=== PATIENT | female | born 1950 | race Caucasian/White ===

== ENCOUNTER 2017-03-12 11:53 | Emergency (ER) | payer OTHER ==
[~2017-03-12 11:53] MED LIST: C1 PO; C5 PO; CALTRA600D PO; CALTRAT600 PO; CARD120 PO; CARDCD120 PO; CLARIT10 PO; COUMADIN10 MG PO; COUMADIN7.5 MG PO; DEMA10T PO; DITRO5 PO; DITROXL5 PO; ESTRACE1 MG PO; ESTRADIOL1 MG PO; K-TABS10 MEQ PO; KLOR-CON 1010 MEQ PO; LEVOTHYROXIN75 MCG PO; LOP25 PO; LOP50 PO; MAGOX4 PO; MAX25 PO; MULTIPLE VIT PO; NEUR300 PO; PRILO PO; PRIN10 PO; ROCALTROL 0.0.25 MCG PO; RYTHMOL225 MG PO; SYN.05 PO; THERGRANM PO; TIROSINT50 MCG PO; VITD PO; ZOL50 PO
[2017-03-12 12:31] LABS: BASOPHILS 0.5 %; BASOPHILS ABSOLUTE 0.03 10/3/uL (0.0-0.16); EOSINOPHILS 2.6 %; EOSINOPHILS ABSOLUTE 0.15 10/3/uL (0.0-0.53); ER CBC TAT 0 Hrs 05 Mins; HEMATOCRIT 37.7 % (36.0-48.0); HEMOGLOBIN 12.2 g/dL (12.0-16.0); IMMATURE GRANULOCYTES 0.5 %; IMMATURE GRANULOCYTES ABSOLUTE 0.03 10/3/uL (0.0-0.11); LYMPHOCYTES 30.1 %; LYMPHOCYTES ABSOLUTE 1.74 10/3/uL (0.67-4.30); MEAN CORPUS HGB CONC 32.4 g/dL (32.0-36.0); MEAN CORPUSCULAR HEMOGLOB 30.4 pg (26.0-34.0); MEAN PLATELET VOLUME 10.9 fL (9.2-13.0); MONOCYTES 11.6 %; MONOCYTES ABSOLUTE 0.67 10/3/uL (0.21-1.20); NEUTROPHILS 54.7 %; NEUTROPHILS ABSOLUTE 3.16 10/3/uL (2.02-8.40); PLATELET COUNT 167 10/3/uL (150-400); RBC DISTRIBUTION WIDTH 13.4 % (12.0-16.0); RED CELL COUNT 4.01 10/6/uL (4.0-5.6); WHITE BLOOD CELLS 5.8 10/3/uL (4.5-10.5)
[2017-03-12 12:32] LABS: MANUAL DIFF NO %
[2017-03-12 12:42] LABS: INTERNATIONAL NORMAL RATI 1.9 UNITS (-); PARTIAL THROMBO TIME 33.9 SEC (22.5-37.2); PROTIME (NOT ORD) 21.3 SEC (12.0-14.5)
[2017-03-12 12:46] LABS: BUN (BLOOD UREA NITROGEN) 20 MG/DL (6-23); CALCIUM, SERUM 8.8 MG/DL (8.5-10.4); CHEST PAIN PROFILE TAT 0 Hrs 20 Mins; CHLORIDE, SERUM 107 MMOL/L (96-112); CO2 (CARBON DIOXIDE) 30 MMOL/L (24-34); CREATININE 1.11 MG/DL (0.55-1.02); GFR AFRICAN AMERICAN 59 ML/MIN (>=60); GFR NON AFRICAN AMERICAN 51 ML/MIN (>=60); GLUCOSE, SERUM 91 MG/DL (60-99); POTASSIUM, SERUM 4.4 MMOL/L (3.5-5.3); SODIUM, SERUM 144 MMOL/L (135-148); TROPONIN I 0.02 NG/ML (<0.05)
== END 2017-03-12 16:42 | disposition home or self-care (01) ==
LOC: ER 11:53
PROVIDERS: Emergency Medicine
DX: I50.9 Heart failure, unspecified (principal); E66.01 Morbid (severe) obesity due to excess calories; G47.30 Sleep apnea, unspecified; I27.2 Other secondary pulmonary hypertension; I48.91 Unspecified atrial fibrillation; K21.9 Gastro-esophageal reflux disease without esophagitis; Z79.899 Other long term (current) drug therapy; Z79.01 Long term (current) use of anticoagulants
CPT/HCPCS: 71020; 80048; 83735; 83880; 84484; 85025; 85610; 85730; 93005; 99285; A9270-GY

== ENCOUNTER 2017-05-12 14:25 | Inpatient (IN) | payer OTHER ==
[~2017-05-12] VITALS: Ht 160 cm; Wt 116.3 kg
--- NOTE | ~2017-05-12 | OP ---
Record Of Operation [facility] [address] [place]. [address] NAME: DAVID VILLAGRAN : 46 STATUS : ADM IN [facility]#: [id number] AGE: 67 ADM/REG DATE : 05/12/17 MR#: [id number] REPORT SERV DATE: 05/19/17 DICTATED BY: KERLINE TSANG DATE: 05/18/17 REPORT STATUS : Draft TRANSCRIBED BY: MODL DATE: 05/18/17 DATE OF PROCEDURE: 05/13/2017 PREPROCEDURAL DIAGNOSIS: End-stage renal disease requiring urgent dialysis. POSTOPERATIVE DIAGNOSIS: End-stage renal disease requiring urgent dialysis. PROCEDURE PERFORMED: Right internal jugular temporary Vas-Cath placement. ANESTHESIA: Local with 1% lidocaine. ESTIMATED BLOOD LOSS: Minimal. PROCEDURE IN DETAIL: After consent was obtained from the patient's daughter at bedside, the right neck was prepped and draped in the usual sterile fashion. Using Seldinger technique, the skin overlying the right internal jugular vein was anesthetized with 1% lidocaine. Using ultrasound guidance, the right internal jugular was accessed with an 18-gauge needle and dark venous blood was aspirated. A guidewire was passed into the internal jugular vein and a small incision was made in the skin. The needle was exchanged for 2 serial dilators followed by the Vas-Cath which was already flushed and prepped. The 15 cm Vas-Cath was placed in the internal jugular vein with the tip guided toward the atriocaval junction. The wire was removed and both ports were checked for venous return and flushed with saline. Two sterile caps were then attached. The Vas-Cath was then sutured to the skin with silk suture and covered with a sterile dressing. The patient tolerated the procedure well. EC/MODL Kerline Tsang DO / [id number] CC: DO Bandar Gibson M.D.
--- NOTE | ~2017-05-12 | CN ---
Consultation Report [facility] [address] [place]. [address] NAME: DAVID VILLAGRAN : 46 STATUS : ADM IN [facility]#: [id number] AGE: 67 ADM/REG DATE : 05/12/17 MR#: [id number] REPORT SERV DATE: 05/22/17 DICTATED BY: ELIAN QUINTANILLA DATE: 05/22/17 REPORT STATUS : Draft TRANSCRIBED BY: MODL DATE: 05/22/17 GI CONSULTATION DATE OF CONSULTATION: 05/22/2017 REASON FOR CONSULTATION: Evaluation and management of small bowel obstruction/ileus. HISTORY OF PRESENT ILLNESS: Ms Villagran is a 67-year-old female patient, who presented to [facility] Room on 05/12/2017 with a chief complaint of progressive weakness. It should be noted that the patient's history of present illness has been gathered from review of data from the chart as well as discussion with her daughter, Heidi, who is present at the bedside. On admission, she had a noted blood pressure of 77/60. Urinalysis was consistent with UTI. She had an elevated white blood cell count. She was admitted for further evaluation secondary to sepsis type picture. The night of admission, she was intubated, was placed on the ventilator as well as Levophed for blood pressure support. She had an elevated creatinine up to 4.23. Ultimately, she was diagnosed with E. coli bacteremia/UTI. She was extubated, but only to be reintubated on 05/18/2017. Abdominal imaging on 05/20/2017 showed small bowel obstruction pattern. KUB today shows more of a persistent ileus type picture. She has an NG tube to low intermittent suction that is putting out 200 per shift roughly per the RN. She has not had a bowel movement since admission. The daughter states that typically she has diarrhea. She is unsure if she has never had an EGD or colonoscopy. I have discussed with them that at present with KUB today showing ileus type picture. We will start her on some suppositories as well as low- dose Reglan and monitor for improvement. They are concerned regarding her nutritional status. I did discuss with them if no improvement in the next two days, we would recommend TPN for enteral nutrition; however, we will see how she responds to these therapies. PAST MEDICAL HISTORY: She has past medical history that is notable for hypertension, obesity, atrial fibrillation with history of cardiac ablation x2, cardioversion x3. She was taking chronic Coumadin on admission. Hypothyroidism, obstructive sleep apnea with CPAP usage, history of GERD, and depression. PAST SURGICAL HISTORY: Includes left total hip arthroplasty, bilateral rotator cuff repair, and hysterectomy. FAMILY HISTORY: Unable to be obtained, but negative from a GI standpoint per the daughter's report. SOCIAL HISTORY: She is . She lives independently. No note of tobacco or drug abuse. ALLERGIES: NO KNOWN ALLERGIES. HOME MEDICATIONS: On admission consisted of Refresh, Cardizem, Lomotil, Synthroid, Prilosec, Ditropan, Rythmol, Demodex, calcium [id number], and Coumadin. Consultation Report [address] [place]. [address] NAME: DAVID VILLAGRAN : 46 STATUS : ADM IN [facility]#: [id number] AGE: 67 ADM/REG DATE : 05/12/17 MR#: [id number] REPORT SERV DATE: 05/22/17 DICTATED BY: ELIAN QUINTANILLA DATE: 05/22/17 REPORT STATUS : Draft TRANSCRIBED BY: ROSA DATE: 05/22/17 REVIEW OF SYSTEMS: Review of systems is unable to be obtained secondary to the patient's sedated status. PHYSICAL EXAMINATION: VITAL SIGNS: Temperature is 99.0, pulse is 175, respirations of 25, and blood pressure is 146/65. NEUROLOGIC: Reveals a sedated chronically ill-appearing female, resting in CCU bed 6. GENERAL: Sedated and intubated. She has an obese body habitus. She is in no acute distress at present. HEAD, EARS, EYES, NOSE, AND THROAT: Anicteric. Pupils are equal, round, and reactive to light and accommodation. Normocephalic and atraumatic. NECK: Supple. No JVD or palpable nodes. LUNGS: Coarse with late crackles in the right upper lobe in the expiratory phase. Ventilator support noted. CARDIOVASCULAR SYSTEM: Irregularly irregular rate and rhythm. ABDOMEN: Round and distended. Extremely hypoactive, but she does have some faint bowel sounds. No rigidity, no rebound or guarding was elicited on exam. EXTREMITIES: She has a brawny lower extremities with 1 to 2+ edema. PERTINENT LABORATORY DATA: Sodium 139, potassium 3.4, BUN 43, and creatinine 2.80. White count 10.3, hemoglobin 8.2, hematocrit 24.3, and platelets are 115. INR of 1.4. IMAGING: KUB on 05/22/2017 with persistent ileus. ASSESSMENT: 1. Small bowel obstruction. Now, with more of an ileus type pattern. 2. Acute hypoxic respiratory failure with her being reintubated on 05/18/2017. 3. Escherichia coli bacteremia/urinary tract infection. 4. Sepsis with septic shock. 5. Acute renal failure, now on CRRT. 6. Atrial fibrillation with previously on Coumadin prior to admission. PLAN: 1. We will obtain serial imaging to assess daily improvement of ileus. 2. Low-dose Reglan at 5 mg IV q.6 hours. 3. Dulcolax suppository b.i.d. 4. Continue NG tube suction. 5. Question TPN if ileus is not improve in one to two days. We will follow. MAGGIE/ROSA Consultation Report [address] [place]. [address] NAME: DAVID VILLAGRAN : 46 STATUS : ADM IN [facility]#: [id number] AGE: 67 ADM/REG DATE : 05/12/17 MR#: [id number] REPORT SERV DATE: 05/22/17 DICTATED BY: ELIAN QUINTANILLA DATE: 05/22/17 REPORT STATUS : Draft TRANSCRIBED BY: ROSA DATE: 05/22/17 SANTHOSH Estrella / [id number] CC: Nancy Lazar M.D.
--- NOTE | ~2017-05-12 | OP ---
Record Of Operation [facility] [address] [place]. [address] NAME: DAVID VILLAGRAN : 46 STATUS : ADM IN [facility]#: [id number] AGE: 67 ADM/REG DATE : 05/12/17 MR#: [id number] REPORT SERV DATE: 05/13/17 DICTATED BY: CHECO BENNETT DATE: 05/13/17 REPORT STATUS : Draft TRANSCRIBED BY: MODL DATE: 05/13/17 DATE OF PROCEDURE: 05/13/2017 PROCEDURE: Endotracheal intubation. PREOPERATIVE DIAGNOSES: Acute hypercapnic respiratory failure and septic shock. POSTOPERATIVE DIAGNOSES: Acute hypercapnic respiratory failure and septic shock. PROCEDURE IN DETAIL: The patient was on BiPAP therapy, she was pre-oxygenated with 100% FiO2 through the BiPAP. She was laid flat for the procedure, the patient was given 100 mg of propofol, BiPAP was taken off and using a Mac blade we were unable to obtain any visualizations of the vocal cords, the patient had quite a small neck and difficulty to have any good visualization using direct laryngoscopy. We then switched to GlideScope and had a grade 1 view. We were able to place the ET tube underneath direct visualization past the vocal cords and secured the ET tube. Post intubation chest x-ray shows that this line is in good position. OUTCOME: Successful endotracheal intubation via GlideScope. No complications or hypoxia or hypotension noted. HFQ/ROSA Checo Bennett MD / [id number] CC: Nancy Lazar M.D.
--- NOTE | ~2017-05-12 | IDS ---
Interim Discharge Summary [facility] [address] [place]. [address] NAME: DAVID VILLAGRAN : 46 STATUS : ADM IN PAT#: [id number] AGE: 67 ADM/REG DATE : 05/12/17 MR#: [id number] REPORT SERV DATE: 05/22/17 DICTATED BY: ONEAL EDGE DATE: 05/22/17 REPORT STATUS : Draft TRANSCRIBED BY: MODL DATE: 05/22/17 ADMISSION DATE: 05/12/2017 DISCHARGE DATE: This summary will cover 05/18/2017 through 05/22/2017, during which time I cared for Ms. Villagran in the CCU. Please see Dr. Juanito Chavez's interim summary dated 05/17/2017 as well as previous H and P from the time of initial hospitalization by Dr. Fernandez, 05/13/2017. ACTIVE PROBLEM LIST THIS WEEK: 1. Acute hypoxemic and hypercapnic respiratory failure. Ms. Villagran was initially intubated at the time of her hospitalization and was able to be extubated on 05/15/[address] Chavez. Unfortunately, after a couple of days, she was reintubated on 05/18/2017 for weak cough, inability to protect airway, and poor mental status with hypoxemia and hypercapnia. She remains volume overloaded and is on meropenem for coverage of possible pneumonia superimposed. 2. Acute renal failure requiring dialysis. She has undergone multiple dialysis treatments this week and has actually been transitioned to a trial of intermittent Bumex by Dr. Ferrara. Her current dose is 2.5 mg IV q.8. The plan is to observe her over the next day or two and make further determinations about dialysis going forward based on her response to the Bumex. Of note, her family has been advised that Dr. Ferrara foresees at least six weeks on dialysis intermittently. 3. Septic shock secondary to Escherichia coli urinary tract infection/bacteremia. She remains on meropenem. She was actually broadened out earlier this week due to concern for co-infection or new infection acquired during hospitalization when she deteriorated on Thursday. 4. Multifactorial encephalopathy. We are weaning sedation as much as possible and trying to keep her more awake. 5. Thrombocytopenia with a negative DIC panel in the setting of septic shock. Her platelet count is improving and she has no active bleeding. 6. Fevers early in the week. She was re-cultured. Her NG tube was changed to an OG tube. Her legs were ultrasounded and her proton pump inhibitor was discontinued and an H2 gia was initiated. She has had no further fevers with broadening the antibiotics to meropenem. 7. Hypothyroidism. She remains on chronic Synthroid. 8. Atrial fibrillation with variable rate control. She has been seen by Dr. Carlos several times this week and remains on IV amiodarone. There was concern that her Rythmol was not being absorbed. 9. Small bowel obstruction. GI has been consulted. She is on NG tube low intermittent suction for bowel rest and we will continue to perform serial abdominal exams. She is not an ideal surgical candidate. 10.Prophylaxis subcutaneous heparin and Pepcid. 11.She has morning labs ordered for tomorrow. 12.Her family has been updated many times this week. She has a , however, that relationship is complicated and the ethics committee as well as the hospital Interim Discharge Summary [address] [place]. [address] NAME: DAVID VILLAGRAN : 46 STATUS : ADM IN PAT#: [id number] AGE: 67 ADM/REG DATE : 05/12/17 MR#: [id number] REPORT SERV DATE: 05/22/17 DICTATED BY: ONEAL EDGE DATE: 05/22/17 REPORT STATUS : Draft TRANSCRIBED BY: ROSA DATE: 05/22/17 administration have been involved over the last two weeks in mediating family interactions. Her son Raffaele Villagran has been serving as her medical decision maker and has been appointed surrogate decision maker by Dr. Chavez last week. She has several other children who have been updated by members of the care team throughout the week. We did have a conversation with her son Raffaele this morning clarifying that he was the primary family contact and that we would appreciate his help and keeping all family members updated on her current clinical condition as performing individual updates have become fairly time consuming for the nursing staff. He was in agreement and we will move forward with daily updates either in person or by telephone to her son, who is her appointed medical decision maker and he will plan to disseminate all additional information each day to the various other members of the family. 13.Code status. After a long family visit with the patient's son, daughter, son-in-law and her brother, decision was made to make her DNR in light of her overall poor prognosis for recovery to good quality of life. She is a no escalation type DNR and we will continue to keep the family updated daily on her clinical status. She will be picked up by the oncoming fighter pilot. ASHLEY/ROSA Oneal Edge MD / [id number] CC: Nancy Lazar M.D.
--- NOTE | ~2017-05-12 | CN ---
Consultation Report [place] [id number] [facility] [place]. [address] NAME: DAVID VILLAGRAN : 46 STATUS : ADM IN PAT#: [id number] AGE: 67 ADM/REG DATE : 05/12/17 MR#: [id number] REPORT SERV DATE: 05/13/17 DICTATED BY: JAMES FLANAGAN DATE: 05/13/17 REPORT STATUS : Draft TRANSCRIBED BY: MODBrock DATE: 05/13/17 NEPHROLOGY CONSULTATION DATE OF CONSULTATION: 05/13/2017 REQUESTING PHYSICIAN: Dr. Justin Fernandez. INDICATION FOR CONSULTATION: Acute kidney injury. HISTORY OF PRESENT ILLNESS: Ms. Villagran is a 67-year-old female who presented to the emergency room with progressive weakness. She was noted to have a blood pressure of 77/60 with a urine consistent with a urinary tract infection and an elevated white count of 16,000. She was admitted, and treatment was initiated for sepsis. During the night, she required intubation and currently is on ventilator, vasopressin and Levophed for support. Creatinine was 1.1 in February 2017 and has risen from 3.26 to 4.23 with a potassium of 5.6. Her white cell count has risen to 23,000, E. coli is growing from her blood, and her procalcitonin level is greater than 200. Her platelet count is 54,000 with an INR of 2.3. PAST MEDICAL HISTORY: 1. Hypertension. 2. Atrial fibrillation, status post cardiac ablations x2 and cardioversion x3, on chronic Coumadin therapy. 3. Hypothyroidism. 4. Obstructive sleep apnea on CPAP. 5. Left total hip arthroplasty 2010. 6. Bilateral rotator cuff repairs. 7. Gastroesophageal reflux disease. 8. Remote hysterectomy. 9. Depression. HOME MEDICATIONS: 1. Cardizem. 2. Lomotil. 3. Synthroid. 4. Prilosec. 5. Ditropan. 6. Rythmol. 7. Demadex. 8. Xflc-ufb-ofvhgyl calcium. 9. Coumadin. ALLERGIES: NONE KNOWN. FAMILY HISTORY: Unable to obtain. The patient is intubated and sedated. Consultation Report [place] [address] [facility] [place]. [address] NAME: DAVID VILLAGRAN : 46 STATUS : ADM IN PAT#: [id number] AGE: 67 ADM/REG DATE : 05/12/17 MR#: [id number] REPORT SERV DATE: 05/13/17 DICTATED BY: JAMES FLANAGAN DATE: 05/13/17 REPORT STATUS : Draft TRANSCRIBED BY: ROSA DATE: 05/13/17 REVIEW OF SYSTEMS: Unable to obtain. The patient is sedated and intubated. PHYSICAL EXAMINATION: GENERAL: Obese female, sedated on vent. VITAL SIGNS: Blood pressure 84/46, temperature 100.5 degrees, respiratory rate 16 per vent, and pulse 60. HEENT: Eyes, no scleral icterus. Pupils reactive. Nares with patent mouth with OG, ET tube in place. NECK: No thyromegaly, masses, or bruits. CHEST/LUNGS: Lateral crackles. No wheezes. CARDIAC: Regular rate and rhythm. No murmur, gallop, or rub. ABDOMEN: Supple. Normoactive bowel sounds. No tenderness. BREASTS: Exam not performed. PELVIC: Exam not performed. RECTAL: Exam not performed. EXTREMITIES: 1 to 2+ brawny edema. No calf tenderness. Some changes suggestive of venous stasis disease in the lower extremities. DERMIS: No rash. No skin lesions except lower extremities consistent with venous stasis disease. MUSCULOSKELETAL: No deformity. No joint effusions. NEUROLOGIC: Unable to evaluate. IMPRESSION: 1. Acute kidney injury secondary to sepsis/shock with hypoperfusion and acute tubular necrosis. 2. Acute respiratory failure, on vent. 3. Severe sepsis with Escherichia coli on blood cultures, likely source. 4. History of atrial fibrillation, status post cardiac ablations and cardioversion. 5. Anemia. 6. Thrombocytopenia. 7. Coagulopathy likely from Coumadin. 8. History of hypotension. 9. Hypothyroidism. 10.Obstructive sleep apnea. 11.Gastroesophageal reflux disease. PLAN: 1. REDRAWER discussed with family. We will proceed as consent has been obtained. 2. Labs. 3. Concur with antibiotic coverage. CG/MODL Consultation Report [place] [address] [place]. [address] NAME: DAVID VILLAGRAN : 46 STATUS : ADM IN PAT#: [id number] AGE: 67 ADM/REG DATE : 05/12/17 MR#: [id number] REPORT SERV DATE: 05/13/17 DICTATED BY: JAMES FLANAGAN DATE: 05/13/17 REPORT STATUS : Draft TRANSCRIBED BY: ROSA DATE: 05/13/17 aJmes Flanagan M.D. / [id number] CC: Nancy Lazar M.D.
--- NOTE | ~2017-05-12 | IDS ---
Interim Discharge Summary [facility] [address] [place]. [address] NAME: DAVID VILLAGRAN : 46 STATUS : ADM IN [facility]#: [id number] AGE: 67 ADM/REG DATE : 05/12/17 MR#: [id number] REPORT SERV DATE: 06/09/17 DICTATED BY: JEANA APARICIO DATE: 06/08/17 REPORT STATUS : Draft TRANSCRIBED BY: ROSA DATE: 06/08/17 ADMISSION DATE: 05/12/2017 DISCHARGE DATE: Please see previous interim discharge summaries by Dr. Chavez on 05/17/2017, Dr. Lomeli on 05/22/2017, and Dr. Ragsdale on 05/29/2017. CURRENT DIAGNOSES: 1. Hypoxemic and hypercapnic respiratory failure, extubated on 05/26/2017. 2. Sepsis secondary to Escherichia coli bacteremia. 3. Acute kidney injury with creatinine now stable at approximately 2. 4. Atrial fibrillation. 5. Ileus, now resolved. 6. Encephalopathy, now resolved. 7. Candidemia, now resolved. 8. Obstructive sleep apnea, on CPAP nightly. 9. Morbid obesity. 10.Diarrhea. BRIEF HOSPITAL COURSE: Ms. Villagran has had a long admission, but in brief summary she presented with septic shock secondary to E. coli urinary tract infection, bacteremia and was treated with meropenem requiring intubation as well for acute hypoxic hypercapnic respiratory failure. She failed her initial extubation and had to be reintubated on 05/18/2017 after which she self-extubated on 05/26/2017. She also had acute kidney injury requiring dialysis with significant volume overload during her stay with improvement of her creatinine, now no longer requiring hemodialysis. Her stay was also complicated with AFib with RVR, which time she was seen by molecular geneticist, Dr. Carlos, and placed on amiodarone, which she continues to be on by mouth at this time. She also is on Coreg for AFib control. She additionally developed an ileus during her hospitalization and was given subcutaneous neostigmine with excellent response. However, she developed diarrhea later in her stay. Her course was also complicated by candidemia, which was felt to be a line colonization, treated with Mycamine at that time. Below are her current medical problems: 1. Acute hypoxic hypercapnic respiratory failure. At this time, she remains on minimal oxygen requirements of 2 to 3 L. 2. Diarrhea. Following resolution of her ileus, she did develop diarrhea. She was tested for C diff and stool cultures, which were negative. Her diarrhea has improved with banana flakes and Lomotil as needed. 3. ARLET. The patient has a creatinine of approximately 3 at this time, which is unstable. She will need a followup with Nephrology after her discharge. 4. Atrial fibrillation. Since assuming her care, she has had no problems with rate control while on carvedilol and amiodarone. She also takes warfarin. 5. Obstructive sleep apnea. She has used her CPAP during the course of her hospitalization without complication. 6. Candidemia. She did have candidemia, which may have been line related, which has been Interim Discharge Summary [address] [address] NAME: DAVID VILLAGRAN : 46 STATUS : ADM IN [facility]#: [id number] AGE: 67 ADM/REG DATE : 05/12/17 MR#: [id number] REPORT SERV DATE: 06/09/17 DICTATED BY: JEANA APARICIO DATE: 06/08/17 REPORT STATUS : Draft TRANSCRIBED BY: ROSA DATE: 06/08/17 treated. She may require an Ophthalmology assessment as an outpatient to assess for endophthalmitis after candidemia. DISPOSITION: The patient is at this time medically stable and ready for discharge; however, we are awaiting full medical and financial approval for her transfer. JAZMINE/ROSA TEX APARICIO / [id number] CC: TEX Allen M.D.
--- NOTE | ~2017-05-12 | HP ---
History And Physical [id number] [place]. [address] NAME: DAVID VILLAGRAN : 46 STATUS : ADM IN [facility]#: [id number] AGE: 67 ADM/REG DATE : 05/12/17 MR#: [id number] REPORT SERV DATE: 05/13/17 DICTATED BY: OLIVIA FERNANDEZ DATE: 05/12/17 REPORT STATUS : Draft TRANSCRIBED BY: MODL DATE: 05/12/17 DATE OF ADMISSION: 05/12/2017 TIME: 1827 hours, seen in the ER bed 2. HISTORY OF PRESENT ILLNESS: The patient is a 67-year-old white female, known history of underlying cardiac disease status post ablation x3. She enters the hospital today after feeling weak for the past several days, having shaking chill and poor urine output. Progressively short of breath. Seen by Dr. Virk in ER. She had an elevated BMP noted with a creatinine that is elevated to above 3. When I arrived, the patient is awake, alert, but slightly tachypneic. She is complaining of back pain. The patient on history denied any history of PR in the past, and indeed review of [employer] revealed a recent ejection fraction of approximately 50%. She is taking a number of different medications, seen by Dr. Carlos from EP, for ablations and is now status post ablations. The clinical suspicion in the ER is that of sepsis and septic shock as well as some early probable diastolic heart failure. PAST MEDICAL HISTORY: Significant for sleep apnea, CPAP and BiPAP status post cardiac cath in the past, thyroid disease, hypertension. She is status post catheter ablation, status post eyelid surgery, rhinoplasty, and history of partial hysterectomy. ALLERGIES: NO KNOWN ALLERGIES. HOME MEDICATIONS: Levothyroxine and Demadex. Other medications currently are unknown at this time except for Coumadin. Her INR is 2.2. REVIEW OF SYSTEMS: GI: Negative. : As noted. CARDIAC: As noted. ENDOCRINE: Hypothyroidism. MUSCULOSKELETAL: Arthritis especially severe back arthritis. HEME/ONC: Negative. FAMILY HISTORY: Noncontributory. PHYSICAL EXAMINATION: VITAL SIGNS: Blood pressure was 76/60, pulse is approximately 70, saturation 97% on oxygen. GENERAL: The patient is awake, alert, oriented, responsive, but somewhat tachypneic. HEENT: Head is normocephalic. Sclerae and conjunctiva clear. Tongue is normal. NECK: Supple. Slight JVD. CHEST: Decreased breath sounds with crackles and some wheezing bilaterally. CARDIAC: S1, S2. No murmurs or gallops at this time. ABDOMEN: Obese nontender. No masses or organomegaly. EXTREMITIES: 2+ edema. Pulses are palpable. NEUROLOGIC: Cranial nerves 2 through 12 are intact. Deep tendon reflexes appear to be History And Physical [address] [address] NAME: DAVID VILLAGRAN : 46 STATUS : ADM IN PAT#: [id number] AGE: 67 ADM/REG DATE : 05/12/17 MR#: [id number] REPORT SERV DATE: 05/13/17 DICTATED BY: OLIVIA FERNANDEZ DATE: 05/12/17 REPORT STATUS : Draft TRANSCRIBED BY: ROSA DATE: 05/12/17 within normal limits. LABORATORY RESULTS: Show procalcitonin of 147.39. Sodium 138, potassium 4.3, chloride 100, CO2 of 21, BUN 27, creatinine 3.46, glucose 103, calcium 8.9, magnesium 1.3, 0.22. Lactate 7.2. 59 and 7.6, H and H 13.3 and 40.6, white count 16,000, platelet count 85,000, 57 polys, 35 bands, 7 metamyelocytes. PTT is 48.8, INR is 2.2. Protime itself was 24.1 seconds. Lactate level 7.2. Arterial blood gas shows a pH of 7.40, PCO2 of 32, PO2 of 90, base excess -4.7 on 36% oxygen. Chest x-ray shows mild cardiomegaly without focal airspace consolidation. Troponin was 0.22. EKG shows sinus tachycardia. IMPRESSION: 1. Severe sepsis and shock. 2. Probable urinary tract infection. 3. Underlying history of cardiac ablation, I suspect diastolic dysfunction. 4. Acute pulmonary insufficiency, hypoxemic in nature. PLAN: Initiate BiPAP. May need fluids as well as pressors. We will place PICC line. We will continue the antibiotics, which she has received in the ER. Capillary refill look good. The patient could not undergo leg raising test because of her extreme dyspnea reclining. RP/MODL Olivia Fernandez M.D. / [id number] CC: Nancy Lazar M.D.
--- NOTE | ~2017-05-12 | DS ---
Discharge Summary [address] [place]. [address] NAME: DAVID VILLAGRAN : 46 STATUS : DIS IN PAT#: [id number] AGE: 67 ADM/REG DATE : 05/12/17 MR#: [id number] REPORT SERV DATE: 06/10/17 DICTATED BY: TEODORO MARTINEZ DATE: 06/09/17 REPORT STATUS : Draft TRANSCRIBED BY: MODL DATE: 06/09/17 ADMISSION DATE: 05/12/2017 DISCHARGE DATE: 06/09/2017 DISCHARGE DIAGNOSES: Include: 1. Acute hypoxic and hypercapnic respiratory failure. 2. Sepsis secondary to E. coli bacteremia. 3. Acute kidney injury on chronic kidney disease stage 3. Baseline creatinine of 2. 4. Atrial fibrillation. 5. Acute encephalopathy, multifactorial, resolved. 6. Ileus, resolved. 7. Morbid obesity. 8. Obstructive sleep apnea, on current CPAP therapy. 9. Candidemia, resolved. 10.Hypothyroidism, on Synthroid therapy. DISCHARGE MEDICATIONS: Are as follows, amiodarone 200 mg twice a day, Coreg 37.5 mg twice a day, Pepcid 20 mg at bedtime, Synthroid 50 mcg daily, Lidoderm topical patch daily, magnesium oxide 400 mg twice a day, melatonin 6 mg at bedtime, Reglan 5 mg t.i.d., Coumadin 3 mg at bedtime, Pulmicort Respules twice a day, DuoNebs every four hours while awake, Ditropan 5 mg twice a day, Prilosec 40 mg daily p.r.n. for GERD symptoms, bzwt-ylx-ynarhrs calcium, Lomotil 2.5 mg daily, Refresh ophthalmic drops twice a day p.r.n., and simethicone 80 mg every six hours p.r.n. for gas. HISTORY OF PRESENT ILLNESS: A 67-year-old white female, who originally presented with feeling weak, chills, poor urine output, and shortness of breath. Please see the initial H and P of Dr. Justin Fernandez on 05/13/2017, as the patient was admitted to the [facility] and moved to the ICU. Please see the interim discharge summaries of anvilsmith, Dr. Juanito Chavez; anvilsmith, Dr. Mya Lomeli; anvilsmith, Dr. Cody Ragsdale; and hospitalist, Dr. Eagle Hagan. CONSULTANTS DURING THIS ADMISSION: Include [facility], Dr. Shore; Naeem Jesus, nurse practitioner. CONTINUATION IN HOSPITAL COURSE: Found the patient on 06/09/2017 that she was feeling quite well, had been able to ambulate with her walker in the room, was continuing use of her CPAP, weaning her oxygen down. She became approved for group home [facility], and was felt safe for discharge there. The above medication regimen updated to the patient's daughter and the patient at bedside. Questions were answered extensively. They are both in agreement with this plan going forward and I have instructed to have an outpatient Ophthalmology followup post her SNF discharge. Also to repeat TSH in six weeks, and she will have her INR rechecked in the a.m., as she is currently on Coumadin 3 mg and her INR was 3.1 today. Please note greater than 30 minutes was spent on this discharge for medical review of a lengthy hospitalization, followup planning, medication teaching, and further disposition. Discharge Summary [address] [address] NAME: DAVID VILLAGRAN : 46 STATUS : DIS IN PAT#: [id number] AGE: 67 ADM/REG DATE : 05/12/17 MR#: [id number] REPORT SERV DATE: 06/10/17 DICTATED BY: TEODORO MARTINEZ DATE: 06/09/17 REPORT STATUS : Draft TRANSCRIBED BY: ROSA DATE: 06/09/17 CSC/ROSA Foreign Rosa NP Teodoro Martinez MD / [id number] CC: MD Bandar Villaseñor M.D.
--- NOTE | ~2017-05-12 | CN ---
Consultation Report [facility] [address] [place]. [address] NAME: DAVID VILLAGRAN : 46 STATUS : ADM IN PAT#: [id number] AGE: 67 ADM/REG DATE : 05/12/17 MR#: [id number] REPORT SERV DATE: 05/13/17 DICTATED BY: JAMES FLANAGAN DATE: 05/13/17 REPORT STATUS : Draft TRANSCRIBED BY: MODBrock DATE: 05/13/17 NEPHROLOGY CONSULTATION DATE OF CONSULTATION: 05/13/2017 INDICATION FOR CONSULTATION: Acute kidney injury. HISTORY OF PRESENT ILLNESS: Ms. Villagran is a 67-year-old female who presented to the emergency room with progressive weakness. She was noted to be hypotensive at 77/60 and findings indicated elevation of her white count with possible urinary tract infection. DICTATION ENDS HERE EVELYN/ROSA James Flanagan M.D. / [id number] CC: Nancy Lazar M.D.
--- NOTE | ~2017-05-12 | IDS ---
Interim Discharge Summary [facility] [address] [place]. [address] NAME: DAVID VILLAGRAN : 46 STATUS : ADM IN [facility]#: [id number] AGE: 67 ADM/REG DATE : 05/12/17 MR#: [id number] REPORT SERV DATE: 05/17/17 DICTATED BY: NABEEL CHAVEZ DATE: 05/17/17 REPORT STATUS : Draft TRANSCRIBED BY: MODBrock DATE: 05/17/17 ADMISSION DATE: 05/12/2017 DISCHARGE DATE: DATE OF INTERIM SUMMARY: 05/17/2017 INTERIM DIAGNOSES: 1. Acute hypoxic respiratory failure. 2. Escherichia coli urinary tract infection and bacteremia. 3. Sepsis with septic shock. 4. Acute hyperactive delirium. 5. Acute thrombocytopenia. 6. Acute renal failure. 7. Metabolic acidosis. 8. Chronic hypothyroidism. 9. Chronic atrial fibrillation. INTERIM SUMMARY: Please see dictated H and P for full patient presentation and history. BRIEF SUMMARY: The patient is a 67-year-old female with a past medical history of morbid obesity, sleep apnea, atrial fibrillation, and coronary disease as well as hypothyroidism, who initially presented to the hospital back on 05/12 with chills, weakness, shortness of breath, and poor urine output. At that time, was admitted to the CCU with sepsis and septic shock as well as respiratory failure and required intubation later that evening. Shortly thereafter, her urine as well as blood grew E coli as the source of her sepsis. 1. Acute hypoxic respiratory failure. As stated above, the patient was intubated on the night of admission for respiratory failure. Her chest x-ray since that time has shown evidence of volume overload and her ejection fraction on the hospital stay is 45%, which is slightly decreased from previous. The patient has been undergoing volume removal with continuous renal replacement therapy as well as IV diuresis. The patient was able to be weaned from the ventilator and liberated on 05/15. Since that time, her respiratory status has been stable, though tenuous at times secondary to some delirium. We have ordered incentive spirometry and EzPAP. The patient has not been able to participate yet from a mental status standpoint. We continue IV diuresis with Bumex and would have a low threshold to reintubate the patient should her mental status worsen for airway protection. 2. E coli urinary tract infection and bacteremia. The patient quickly grew E coli from her urine as well as her blood. She remains on antibiotics at this time. Her septic shock has resolved, and she has been off Levophed for several days. Continue to monitor this closely. 3. Acute hyperactive delirium. Since extubation, the patient's mental status has slowly worsened and become more agitated at times, suggestive of hyperactive delirium. She remains on a Precedex drip. We have also started supplemental Haldol p.r.n. and are placing an NG tube today to resume her scheduled Seroquel. With her delirium and mental status, she is at aspiration risk, so I am keeping her n.p.o. and again placing an NG tube. We will start tube feeds tomorrow. Again, low threshold to intubate her Interim Discharge Summary [address] [place]. [address] NAME: DAVID VILLAGRAN : 46 STATUS : ADM IN [facility]#: [id number] AGE: 67 ADM/REG DATE : 05/12/17 MR#: [id number] REPORT SERV DATE: 05/17/17 DICTATED BY: NABEEL CHAVEZ DATE: 05/17/17 REPORT STATUS : Draft TRANSCRIBED BY: MODBrock DATE: 05/17/17 for airway protection should her mental status worsen. 4. Acute thrombocytopenia. Likely, this is secondary to sepsis. Her DIC panel was negative. She has no signs of bleeding. We will continue to monitor this. 5. Acute renal failure with metabolic acidosis. Renal has been following. Currently, she is on CRRT. She is making urine with IV Bumex, so I suspect they may wish to transition over to intermittent hemodialysis soon. 6. Hypothyroidism. She will continue her chronic Synthroid. 7. Atrial fibrillation. The patient has been rate controlled on IV amiodarone since we are placing an NG tube today. We will continue her home Rythmol and attempt to get her off the IV amiodarone. 8. The patient remains critically ill and tenuous in the ICU. She has a high probability of sudden clinically significant or life-threatening deterioration in her condition. The oncoming dipper clock and watch hands will assume her care tomorrow. Please call if you have any questions. LISA Nabeel Chavez MD / [id number] CC: Nancy Lazar M.D.
--- NOTE | ~2017-05-12 | IDS ---
Interim Discharge Summary [facility] [address] [place]. [address] NAME: DAVID VILLAGRAN : 46 STATUS : ADM IN [facility]#: [id number] AGE: 67 ADM/REG DATE : 05/12/17 MR#: [id number] REPORT SERV DATE: 05/29/17 DICTATED BY: PK RAGSDALE IV DATE: 05/29/17 REPORT STATUS : Draft TRANSCRIBED BY: ROSA DATE: 05/29/17 ADMISSION DATE: 05/12/2017 DISCHARGE DATE: Please see previous interim discharge summaries by Dr. Chavez on 05/[address] Lomeli on 05/22/2017. This interim discharge summary will add to the previous interim discharge summaries. DIAGNOSES: 1. Hypoxemic and hypercapnic respiratory failure, extubated on the on adequate saturations on 3 L supplemental oxygen. 2. Acute kidney injury with continued improvement of her creatinine despite continued diuresis with creatinine down now to 1.59. 3. E. coli bacteremia and sepsis, resolved. 4. Candidemia felt to be line-related, treated transiently with Mycamine, now off medication. 5. Ileus, which was persistent though seemed to improve with neostigmine subcutaneous injection yesterday, now on a clear liquid diet. 6. Atrial fibrillation with rapid ventricular response, still intermittently in and out of atrial fibrillation with medications changed to IV because of questions of abdominal absorption. 7. Encephalopathy, resolved. 8. Obstructive sleep apnea, on CPAP which she using nightly. 9. Electrolyte abnormalities, being corrected. 10.Hypothyroidism, on replacement therapy. CONSULTANTS: Nephrology had been following the patient, however, signed off. Gastroenterology continues to follow the patient and [facility] had signed off though will see the patient because of the recurrent atrial fibrillation. PROCEDURES: The patient has had no new procedures since the previous interim discharge summary. She was being weaned and self extubated on the 05/26. HOSPITAL COURSE: The patient had fever over the weekend, for which blood cultures were obtained. The culture from the PICC line grew both Zulema albicans as well as lusitaniae. Before these were identified, the patient was placed on Mycamine. Urine culture on the same day demonstrated Zulema krusei; however, after the Quiros catheter was changed, the most recent urine demonstrated no white blood cells. The patient remained on mechanical ventilator with weaning trials. Because of some continued confusion and increased secretions, she was not extubated on the , however, was being weaned extubation on the when she self-extubated. She did well after the extubation with decreasing oxygen needs. She had her Vas-Cath pulled on the and was continued on diuretic therapy by Renal with negative fluid balance despite improving creatinine. Nephrology signed off the case. She had meropenem discontinued on the after an adequate course for E. coli bacteremia and urosepsis. She had the candidemia as noted with initiation of Mycamine on the . This was discontinued today because only the PICC line culture was positive, Interim Discharge Summary [address] [address] [facility] [place]. [address] NAME: DAVID VILLAGRAN : 46 STATUS : ADM IN [facility]#: [id number] AGE: 67 ADM/REG DATE : 05/12/17 MR#: [id number] REPORT SERV DATE: 05/29/17 DICTATED BY: PK RAGSDALE IV DATE: 05/29/17 REPORT STATUS : Draft TRANSCRIBED BY: ROSA DATE: 05/29/17 which was removed and replaced with a new PICC catheter. All other line cultures were negative to include the PICC line when it was removed. As noted, she had been on oral amiodarone and beta-gia; however, this was transitioned to IV because of concern about oral absorption by Cardiology and intermittent episodes of atrial fibrillation. An amiodarone load of 150 mg was provided today with IV drip, and the patient will be given IV beta-gia. She had a severe and prolonged ileus, for which she was given Reglan, azithromycin, and bowel stimulants to no avail. She was given 0.5 mg of neostigmine subcutaneous on the with excellent response both clinically with a large bowel movement and on KUB with dramatic decrease in the air and the ileus. She was initiated on an oral diet today. She remained on Synthroid replacement for her hypothyroidism. She used CPAP every evening. She had multiple electrolyte abnormalities, which were corrected daily. With clinical improvement, she was felt to be stable for transfer to the floor. We will ask Hospitalist Service to assume primary care. Of note, the patient has had some family issues, for which the son is the appointed POA. Decision had been made for the patient to be a do not resuscitate, which will be continued. GENESIS/ROSA Pk Ragsdale IV, M.D. / [id number] CC: Nancy Lazar M.D.
--- NOTE | ~2017-05-12 | OP ---
Record Of Operation [facility] [address] [place]. [address] NAME: DAVID VILLAGRAN : 46 STATUS : ADM IN [facility]#: [id number] AGE: 67 ADM/REG DATE : 05/12/17 MR#: [id number] REPORT SERV DATE: 05/18/17 DICTATED BY: ONEAL EDGE DATE: 05/18/17 REPORT STATUS : Draft TRANSCRIBED BY: ROSA DATE: 05/18/17 DATE OF PROCEDURE: 05/18/2017 PULMONARY CRITICAL CARE MEDICINE INTUBATION NOTE INDICATION FOR INTUBATION: Acute hypercapnic, and hypoxemic respiratory failure, and respiratory distress. PREMEDICATION: Etomidate 20 mg IV x1, and rocuronium 50 mg IV x1, followed by fentanyl for post-intubation sedation. CONSENT: Verbal from the daughter at the bedside, who was present for visiting hours. PROCEDURE IN DETAIL: Due to worsening respiratory distress and hypercapnia, a decision was made to intubate Ms. Villagran after briefly discussing her clinical deterioration with her daughter. She was positioned in usual fashion and premedicated with the above and #3 GlideScope was advanced into her mouth and was used to clearly visualize her vocal cords which were surrounded by thick copious secretions which were suctioned using a Actacell suction catheter. #7.5 endotracheal tube was advanced under direct visualization after having been pre lubricated and secured to the patient at a depth of 22 cm at the lips. A followup chest x-ray was requested and was pending at the time of this dictation. After intubation, there were bilateral breath sounds with bagging which were very coarse in nature. Absent breath sounds over the fundus of the stomach with bagging. Positive color change on end-tidal CO2 detector and condensation in the tube with bagging. An NG tube was already in place and was connected to suction and a large amount of green bilious material was drained immediately after being connected to the suction system. The patient's daughter was updated postprocedure, and she was placed on invasive mechanical ventilation. ASHLEY/ROSA Oneal Edge MD / [id number] CC: Nancy Lazar M.D.
[2017-05-12 15:25] LABS: BASOPHILS 0.1 %; BASOPHILS ABSOLUTE 0.01 10/3/uL (0.0-0.16); EOSINOPHILS 0.1 %; EOSINOPHILS ABSOLUTE 0.02 10/3/uL (0.0-0.53); HEMATOCRIT 40.6 % (36.0-48.0); HEMOGLOBIN 13.3 g/dL (12.0-16.0); IMMATURE GRANULOCYTES 3.8 %; IMMATURE GRANULOCYTES ABSOLUTE 0.61 10/3/uL (0.0-0.11); LYMPHOCYTES 4.6 %; LYMPHOCYTES ABSOLUTE 0.74 10/3/uL (0.67-4.30); MEAN CORPUS HGB CONC 32.8 g/dL (32.0-36.0); MEAN CORPUSCULAR HEMOGLOB 31.2 pg (26.0-34.0); MEAN CORPUSCULAR VOLUME 95.3 fL (80-100); MEAN PLATELET VOLUME 11.9 fL (9.2-13.0); MONOCYTES 4.1 %; MONOCYTES ABSOLUTE 0.65 10/3/uL (0.21-1.20); NEUTROPHILS 87.3 %; NEUTROPHILS ABSOLUTE 13.92 10/3/uL (2.02-8.40); RBC DISTRIBUTION WIDTH 13.5 % (12.0-16.0); RED CELL COUNT 4.26 10/6/uL (4.0-5.6)
[2017-05-12 15:26] LABS: ER CBC TAT 0 Hrs 09 Mins; PLATELET COUNT 85 10/3/uL (150-400)
[2017-05-12 15:27] LABS: INTERNATIONAL NORMAL RATI 2.2 UNITS (-); MANUAL DIFF NO %; PROTIME (NOT ORD) 24.1 SEC (12.0-14.5)
[2017-05-12 15:28] LABS: PARTIAL THROMBO TIME 48.8 SEC (22.5-37.2)
[2017-05-12 15:38] LABS: BUN (BLOOD UREA NITROGEN) 27 MG/DL (6-23); CALCIUM, SERUM 8.9 MG/DL (8.5-10.4); CHEST PAIN PROFILE TAT 0 Hrs 21 Mins; CHLORIDE, SERUM 100 MMOL/L (96-112); CO2 (CARBON DIOXIDE) 21 MMOL/L (24-34); CREATININE 3.46 MG/DL (0.55-1.02); GFR AFRICAN AMERICAN 15 ML/MIN (>=60); GFR NON AFRICAN AMERICAN 13 ML/MIN (>=60); GLUCOSE, SERUM 103 MG/DL (60-99); POTASSIUM, SERUM 4.3 MMOL/L (3.5-5.3); SODIUM, SERUM 138 MMOL/L (135-148); TROPONIN I 0.22 NG/ML (<0.05)
[2017-05-12 15:49] LABS: BAND NEUTROPHILS 35 %; ER DIFF TAT 0 Hrs 32 Mins; IMMATURE GRANS ABSOLUTE (CALC) 1.12 10/3/uL (0.0-0.11); LYMPHOCYTES 1 %; LYMPHOCYTES ABSOLUTE (CALC) 0.16 10/3/uL (0.67-4.30); METAMYELOCYTES 7 %; NEUTROPHILS ABSOLUTE (CALC) 14.72 10/3/uL (2.02-8.40); PLATELET ESTIMATE DEC (ADEQUATE); SEGMENTED NEUTROPHIL (0) 57 %; TOTAL NUCLEATED CELLS 100
[2017-05-12 15:50] LABS: RBC MORPHOLOGY NORM (NORMAL); VACUOLATED NEUTROPHILES OCC
[2017-05-12 16:50] LABS: BE (BASE EXCESS) -4.7 MEQ/L (0 +/- 2.5); HCO3 (ACTUAL BICARBONATE) 19.1 MEQ/L (23-27); INSTRUMENT SERIAL # 8087; PCO2 (CO2 TENSION) 32 MMHG (35-45); PO2 (O2 TENSION) 90 MMHG (79-93)
[2017-05-12 16:51] LABS: ALLENS TEST Pos; CARBOXYHEMOGLOBIN 1.2 % (0-3); HEMOBLOGIN CONTENT 13.8 G/DL (12-16); METHEMOGLOBIN 0.2 % (0-3); O2 CONTENT 18.6 VOL% (18-24); OPERATOR ID 14335; SAMPLE Arterial
[2017-05-12 17:45] LABS: LACTATE 7.2 MMOL/L (0.3-2.4)
[2017-05-12 17:47] LABS: PROCALCITONIN 147.39 ng/mL (<0.5)
[2017-05-12 18:29] LABS: DIRECT BILIRUBIN 0.5 MG/DL (0.0-0.4); SGOT(AST) 54 U/L (5-40); SGPT(ALT) 31 U/L (5-65); TOTAL PROTEIN 7.3 G/DL (6.0-8.5)
[2017-05-12 18:32] LABS: ALBUMIN 3.2 G/DL (3.5-5.0); ALKALINE PHOSPHATASE 132 U/L (45-117); INDIRECT BILIRUBIN(NOT ORDER) 0.6 MG/DL (0.1-0.9); TOTAL BILIRUBIN 1.1 MG/DL (0-1.2)
[2017-05-12 18:50] LABS: ASCORBIC ACID (UR NOT ORDER) NEG (NEG); BILIRUBIN, URINE NEGATIVE (NEG); ER URINALYSIS TAT 0 Hrs 12 Mins; KETONE, URINE NEGATIVE (NEG); LEUKOCYTE ESTERASE(NOT OR LARGE (NEG); NITRITE (URINE) NEG (NEG); WBC (NOT ORDERED) (RFLEX) 9 (0-5)
[2017-05-12] MEDS ORDERED: *UNABLE3 (19:01)
[2017-05-12] MEDS ORDERED: CARDIZEM LA120 MG PO (19:09)
[2017-05-12] MEDS ORDERED: RYTHMOL225 MG PO (19:09)
[2017-05-12] MEDS ORDERED: C1 PO (19:09)
[2017-05-12] MEDS ORDERED: DEMA10T PO ×2 (19:09)
[2017-05-12] MEDS ORDERED: DITRO5 PO (19:10)
[2017-05-12] MEDS ORDERED: SYN.05 PO (19:10)
[2017-05-12] MEDS ORDERED: PRILOSEC40 MG PO (19:10)
[2017-05-12] MEDS ORDERED: CALCIUM OTC PO (19:10)
[2017-05-12] MEDS ORDERED: REFRESH OPH (19:11)
[2017-05-12] MEDS ORDERED: LOM PO (19:11)
[2017-05-13 01:05] LABS: FREE T4 1.44 NG/DL (0.76-1.46)
[2017-05-13 01:10] LABS: ULTRASENSITIVE TSH 1.46 MCIU/ML (0.358-3.740)
[2017-05-13 03:09] LABS: ALLENS TEST Pos; BE (BASE EXCESS) -6.2 MEQ/L (0 +/- 2.5); BIPAP 15/5 cm.H2O; CARBOXYHEMOGLOBIN 0.4 % (0-3); HCO3 (ACTUAL BICARBONATE) 21.4 MEQ/L (23-27); HEMOBLOGIN CONTENT 13.2 G/DL (12-16); INSTRUMENT SERIAL # 35151; METHEMOGLOBIN 0.5 % (0-3); O2 CONTENT 17.9 VOL% (18-24); OPERATOR ID 17370; PCO2 (CO2 TENSION) 51 MMHG (35-45); PO2 (O2 TENSION) 98 MMHG (79-93); SAMPLE Arterial; pH 7.24 (7.37-7.43)
[2017-05-13 04:49] LABS: HEMATOCRIT 37.3 % (36.0-48.0); HEMOGLOBIN 12.1 g/dL (12.0-16.0); MEAN CORPUS HGB CONC 32.4 g/dL (32.0-36.0); MEAN CORPUSCULAR HEMOGLOB 31.1 pg (26.0-34.0); MEAN CORPUSCULAR VOLUME 95.9 fL (80-100); RBC DISTRIBUTION WIDTH 14.1 % (12.0-16.0); RED CELL COUNT 3.89 10/6/uL (4.0-5.6)
[2017-05-13 04:51] LABS: MANUAL DIFF YES %; PLATELET COUNT 54 10/3/uL (150-400)
[2017-05-13 04:56] LABS: INTERNATIONAL NORMAL RATI 2.3 UNITS (-); PROTIME (NOT ORD) 25.1 SEC (12.0-14.5)
[2017-05-13 05:11] LABS: A/G RATIO 0.7 (0.7-1.9); ALBUMIN 2.6 G/DL (3.5-5.0); ALKALINE PHOSPHATASE 72 U/L (45-117); BUN (BLOOD UREA NITROGEN) 35 MG/DL (6-23); CALCIUM, SERUM 7.9 MG/DL (8.5-10.4); CHLORIDE, SERUM 101 MMOL/L (96-112); CO2 (CARBON DIOXIDE) 21 MMOL/L (24-34); CREATININE 4.23 MG/DL (0.55-1.02); GFR AFRICAN AMERICAN 12 ML/MIN (>=60); GFR NON AFRICAN AMERICAN 10 ML/MIN (>=60); GLOBULIN 3.7 G/DL (2.5-4.1); GLUCOSE, SERUM 82 MG/DL (60-99); PHOSPHORUS, SERUM 5.6 MG/DL (2.5-4.5); POTASSIUM, SERUM 5.6 MMOL/L (3.5-5.3); SGOT(AST) 61 U/L (5-40); SGPT(ALT) 28 U/L (5-65); SODIUM, SERUM 134 MMOL/L (135-148); TOTAL PROTEIN 6.3 G/DL (6.0-8.5)
[2017-05-13 05:37] LABS: BAND NEUTROPHILS 25 %; IMMATURE GRANS ABSOLUTE (CALC) 0.69 10/3/uL (0.0-0.11); LYMPHOCYTES 3 %; LYMPHOCYTES ABSOLUTE (CALC) 0.69 10/3/uL (0.67-4.30); METAMYELOCYTES 3 %; MONOCYTES 2 %; MONOCYTES ABSOLUTE (CALC) 0.46 10/3/uL (0.21-1.20); NEUTROPHILS ABSOLUTE (CALC) 21.16 10/3/uL (2.02-8.40); SEGMENTED NEUTROPHIL (0) 67 %; TOTAL NUCLEATED CELLS 100
[2017-05-13 05:38] LABS: PLATELET ESTIMATE DEC (ADEQUATE); VACUOLATED NEUTROPHILES 1+
[2017-05-13 05:40] LABS: RBC MORPHOLOGY NORM (NORMAL)
[2017-05-13 09:46] LABS: INTERNATIONAL NORMAL RATI 2.1 UNITS (-); PROTIME (NOT ORD) 23.1 SEC (12.0-14.5)
[2017-05-13 09:51] LABS: BUN (BLOOD UREA NITROGEN) 39 MG/DL (6-23); CHLORIDE, SERUM 101 MMOL/L (96-112); CO2 (CARBON DIOXIDE) 21 MMOL/L (24-34); GFR AFRICAN AMERICAN 12 ML/MIN (>=60); GFR NON AFRICAN AMERICAN 10 ML/MIN (>=60); GLUCOSE, SERUM 89 MG/DL (60-99); POTASSIUM, SERUM 4.9 MMOL/L (3.5-5.3); SODIUM, SERUM 134 MMOL/L (135-148)
[2017-05-13 10:23] LABS: PROCALCITONIN > 200.00 ng/mL (<0.5)
[2017-05-13 11:16] LABS: PARTIAL THROMBO TIME 47.2 SEC (22.5-37.2); PROTIME (NOT ORD) 22.9 SEC (12.0-14.5)
[2017-05-13 11:19] LABS: D-DIMER QUANTITATIVE 2.22 ug/mLFEU (< 0.50)
[2017-05-13 13:15] LABS: ALLENS TEST Pos; CARBOXYHEMOGLOBIN 0.3 % (0-3); HCO3 (ACTUAL BICARBONATE) 20.9 MEQ/L (23-27); HEMOBLOGIN CONTENT 13.2 G/DL (12-16); INSTRUMENT SERIAL # 35151; METHEMOGLOBIN 0.5 % (0-3); MODE CMV; O2 CONTENT 18.1 VOL% (18-24); OPERATOR ID 32199; PCO2 (CO2 TENSION) 42 MMHG (35-45); PO2 (O2 TENSION) 105 MMHG (79-93); SAMPLE Arterial; TIDAL VOLUME 500 ML; pH 7.32 (7.37-7.43)
[2017-05-13 14:09] LABS: A/G RATIO 0.6 (0.7-1.9); ALBUMIN 2.3 G/DL (3.5-5.0); CALCIUM, SERUM 7.6 MG/DL (8.5-10.4); CHLORIDE, SERUM 100 MMOL/L (96-112); CO2 (CARBON DIOXIDE) 22 MMOL/L (24-34); CREATININE 4.21 MG/DL (0.55-1.02); GFR AFRICAN AMERICAN 12 ML/MIN (>=60); GFR NON AFRICAN AMERICAN 10 ML/MIN (>=60); GLOBULIN 3.9 G/DL (2.5-4.1); GLUCOSE, SERUM 94 MG/DL (60-99); SGOT(AST) 102 U/L (5-40); SGPT(ALT) 36 U/L (5-65); SODIUM, SERUM 136 MMOL/L (135-148); TOTAL PROTEIN 6.2 G/DL (6.0-8.5)
[2017-05-13 14:10] LABS: ALKALINE PHOSPHATASE 90 U/L (45-117); BUN (BLOOD UREA NITROGEN) 43 MG/DL (6-23); PHOSPHORUS, SERUM 4.5 MG/DL (2.5-4.5); TOTAL BILIRUBIN 1.9 MG/DL (0-1.2)
[2017-05-14 00:40] LABS: HEMATOCRIT 35.6 % (36.0-48.0); HEMOGLOBIN 11.7 g/dL (12.0-16.0); MEAN CORPUS HGB CONC 32.9 g/dL (32.0-36.0); MEAN CORPUSCULAR VOLUME 94.2 fL (80-100); MEAN PLATELET VOLUME 13.5 fL (9.2-13.0); RBC DISTRIBUTION WIDTH 14.4 % (12.0-16.0); RED CELL COUNT 3.78 10/6/uL (4.0-5.6); WHITE BLOOD CELLS 17.1 10/3/uL (4.5-10.5)
[2017-05-14 00:43] LABS: PLATELET COUNT 35 10/3/uL (150-400)
[2017-05-14 00:47] LABS: MANUAL DIFF YES %
[2017-05-14 00:52] LABS: CALCIUM, SERUM 7.1 MG/DL (8.5-10.4); CHLORIDE, SERUM 101 MMOL/L (96-112); CO2 (CARBON DIOXIDE) 24 MMOL/L (24-34); GLUCOSE, SERUM 100 MG/DL (60-99); POTASSIUM, SERUM 4.6 MMOL/L (3.5-5.3); SODIUM, SERUM 137 MMOL/L (135-148)
[2017-05-14 01:01] LABS: BUN (BLOOD UREA NITROGEN) 27 MG/DL (6-23); CREATININE 2.43 MG/DL (0.55-1.02); GFR AFRICAN AMERICAN 23 ML/MIN (>=60); GFR NON AFRICAN AMERICAN 20 ML/MIN (>=60); PHOSPHORUS, SERUM 2.2 MG/DL (2.5-4.5)
[2017-05-14 01:06] LABS: BAND NEUTROPHILS 13 %; IMMATURE GRANS ABSOLUTE (CALC) 0.17 10/3/uL (0.0-0.11); LYMPHOCYTES 9 %; LYMPHOCYTES ABSOLUTE (CALC) 1.54 10/3/uL (0.67-4.30); METAMYELOCYTES 1 %; MONOCYTES 4 %; MONOCYTES ABSOLUTE (CALC) 0.68 10/3/uL (0.21-1.20); NEUTROPHILS ABSOLUTE (CALC) 14.71 10/3/uL (2.02-8.40); SEGMENTED NEUTROPHIL (0) 73 %; TOTAL NUCLEATED CELLS 100
[2017-05-14 06:30] LABS: INTERNATIONAL NORMAL RATI 1.6 UNITS (-)
[2017-05-14 06:31] LABS: FIBRINOGEN 783 MG/DL (230-462); PROTIME (NOT ORD) 18.9 SEC (12.0-14.5)
[2017-05-14 06:33] LABS: D-DIMER QUANTITATIVE 1.29 ug/mLFEU (< 0.50)
[2017-05-14 06:40] LABS: A/G RATIO 0.5 (0.7-1.9); ALKALINE PHOSPHATASE 97 U/L (45-117); BUN (BLOOD UREA NITROGEN) 17 MG/DL (6-23); CALCIUM, SERUM 7.1 MG/DL (8.5-10.4); CHLORIDE, SERUM 99 MMOL/L (96-112); CO2 (CARBON DIOXIDE) 25 MMOL/L (24-34); CREATININE 1.56 MG/DL (0.55-1.02); GFR AFRICAN AMERICAN 39 ML/MIN (>=60); GFR NON AFRICAN AMERICAN 34 ML/MIN (>=60); GLOBULIN 3.7 G/DL (2.5-4.1); GLUCOSE, SERUM 109 MG/DL (60-99); POTASSIUM, SERUM 4.1 MMOL/L (3.5-5.3); SGOT(AST) 116 U/L (5-40); SGPT(ALT) 39 U/L (5-65); SODIUM, SERUM 137 MMOL/L (135-148); TOTAL BILIRUBIN 2.2 MG/DL (0-1.2); TOTAL PROTEIN 5.7 G/DL (6.0-8.5)
[2017-05-14 06:41] LABS: PHOSPHORUS, SERUM 3.1 MG/DL (2.5-4.5)
[2017-05-14 06:53] LABS: HEMATOCRIT 35.2 % (36.0-48.0); HEMOGLOBIN 11.3 g/dL (12.0-16.0); MANUAL DIFF YES %; MEAN CORPUS HGB CONC 32.1 g/dL (32.0-36.0); MEAN CORPUSCULAR HEMOGLOB 30.7 pg (26.0-34.0); MEAN CORPUSCULAR VOLUME 95.7 fL (80-100); MEAN PLATELET VOLUME 13.7 fL (9.2-13.0); PLATELET COUNT 33 10/3/uL (150-400); RBC DISTRIBUTION WIDTH 14.3 % (12.0-16.0); RED CELL COUNT 3.68 10/6/uL (4.0-5.6); WHITE BLOOD CELLS 15.1 10/3/uL (4.5-10.5)
[2017-05-14 07:23] LABS: BAND NEUTROPHILS 12 %; IMMATURE GRANS ABSOLUTE (CALC) 0.15 10/3/uL (0.0-0.11); LYMPHOCYTES 6 %; LYMPHOCYTES ABSOLUTE (CALC) 0.91 10/3/uL (0.67-4.30); METAMYELOCYTES 1 %; MONOCYTES 4 %; NEUTROPHILS ABSOLUTE (CALC) 13.44 10/3/uL (2.02-8.40); SEGMENTED NEUTROPHIL (0) 77 %; TOTAL NUCLEATED CELLS 100
[2017-05-14 07:24] LABS: RBC MORPHOLOGY NORM (NORMAL); TOXIC GRANULATION SLT; VACUOLATED NEUTROPHILES OCC
[2017-05-14 09:11] LABS: BE (BASE EXCESS) -4.5 MEQ/L (0 +/- 2.5); HCO3 (ACTUAL BICARBONATE) 21.2 MEQ/L (23-27); INSTRUMENT SERIAL # 35151; PCO2 (CO2 TENSION) 42 MMHG (35-45); PO2 (O2 TENSION) 90 MMHG (79-93); pH 7.33 (7.37-7.43)
[2017-05-14 09:12] LABS: ALLENS TEST Pos; CARBOXYHEMOGLOBIN 0.2 % (0-3); HEMOBLOGIN CONTENT 12.5 G/DL (12-16); METHEMOGLOBIN 0.3 % (0-3); O2 CONTENT 16.9 VOL% (18-24); OPERATOR ID 23712; SAMPLE Arterial
[2017-05-14 09:13] LABS: BE (BASE EXCESS) -4.6 MEQ/L (0 +/- 2.5); CARBOXYHEMOGLOBIN 0.2 % (0-3); HCO3 (ACTUAL BICARBONATE) 21.4 MEQ/L (23-27); HEMOBLOGIN CONTENT 13.4 G/DL (12-16); INSTRUMENT SERIAL # 35151; METHEMOGLOBIN 0.5 % (0-3); O2 CONTENT 19.1 VOL% (18-24); OPERATOR ID 13861; PCO2 (CO2 TENSION) 43 MMHG (35-45); PO2 (O2 TENSION) 239 MMHG (79-93); SAMPLE Arterial; pH 7.32 (7.37-7.43)
[2017-05-14 09:14] LABS: ALLENS TEST Pos
[2017-05-14 12:57] LABS: HEMATOCRIT 33.1 % (36.0-48.0); HEMOGLOBIN 10.9 g/dL (12.0-16.0); MEAN CORPUS HGB CONC 32.9 g/dL (32.0-36.0); MEAN CORPUSCULAR HEMOGLOB 31.2 pg (26.0-34.0); MEAN CORPUSCULAR VOLUME 94.8 fL (80-100); MEAN PLATELET VOLUME 12.3 fL (9.2-13.0); RBC DISTRIBUTION WIDTH 14.6 % (12.0-16.0); RED CELL COUNT 3.49 10/6/uL (4.0-5.6); WHITE BLOOD CELLS 15.1 10/3/uL (4.5-10.5)
[2017-05-14 12:58] LABS: MANUAL DIFF YES %; PLATELET COUNT 36 10/3/uL (150-400)
[2017-05-14 13:17] LABS: CALCIUM, SERUM 7.9 MG/DL (8.5-10.4); CHLORIDE, SERUM 101 MMOL/L (96-112); CO2 (CARBON DIOXIDE) 27 MMOL/L (24-34); CREATININE 1.23 MG/DL (0.55-1.02); GFR AFRICAN AMERICAN 52 ML/MIN (>=60); GFR NON AFRICAN AMERICAN 45 ML/MIN (>=60); GLUCOSE, SERUM 93 MG/DL (60-99); SODIUM, SERUM 139 MMOL/L (135-148)
[2017-05-14 13:18] LABS: BUN (BLOOD UREA NITROGEN) 11 MG/DL (6-23); PHOSPHORUS, SERUM 1.7 MG/DL (2.5-4.5)
[2017-05-14 13:19] LABS: BAND NEUTROPHILS 12 %; IMMATURE GRANS ABSOLUTE (CALC) 0.15 10/3/uL (0.0-0.11); LYMPHOCYTES 5 %; LYMPHOCYTES ABSOLUTE (CALC) 0.76 10/3/uL (0.67-4.30); METAMYELOCYTES 1 %; MONOCYTES 3 %; MONOCYTES ABSOLUTE (CALC) 0.45 10/3/uL (0.21-1.20); NEUTROPHILS ABSOLUTE (CALC) 13.74 10/3/uL (2.02-8.40); SEGMENTED NEUTROPHIL (0) 79 %; TOTAL NUCLEATED CELLS 100
[2017-05-14 13:20] LABS: BURR CELLS 1+ (3-10/OIF) (0-2/OIF); GIANT PLATELET RARE; POIKILOCYTOSIS 1+ (5-10/OIF) (0-5/OIF); VACUOLATED NEUTROPHILES 1+
[2017-05-14 18:55] LABS: BASOPHILS 0.1 %; BASOPHILS ABSOLUTE 0.01 10/3/uL (0.0-0.16); EOSINOPHILS 0.3 %; EOSINOPHILS ABSOLUTE 0.05 10/3/uL (0.0-0.53); HEMATOCRIT 32.5 % (36.0-48.0); HEMOGLOBIN 10.6 g/dL (12.0-16.0); IMMATURE GRANULOCYTES 0.8 %; IMMATURE GRANULOCYTES ABSOLUTE 0.13 10/3/uL (0.0-0.11); LYMPHOCYTES 6.9 %; MEAN CORPUS HGB CONC 32.6 g/dL (32.0-36.0); MONOCYTES 6.7 %; MONOCYTES ABSOLUTE 1.06 10/3/uL (0.21-1.20); NEUTROPHILS 85.2 %; NEUTROPHILS ABSOLUTE 13.57 10/3/uL (2.02-8.40); RBC DISTRIBUTION WIDTH 14.6 % (12.0-16.0); RED CELL COUNT 3.42 10/6/uL (4.0-5.6); WHITE BLOOD CELLS 15.9 10/3/uL (4.5-10.5)
[2017-05-14 18:58] LABS: MANUAL DIFF NO %; PLATELET COUNT 40 10/3/uL (150-400)
[2017-05-14 19:04] LABS: BUN (BLOOD UREA NITROGEN) 9 MG/DL (6-23); CALCIUM, SERUM 7.7 MG/DL (8.5-10.4); CHLORIDE, SERUM 99 MMOL/L (96-112); CO2 (CARBON DIOXIDE) 30 MMOL/L (24-34); CREATININE 1.01 MG/DL (0.55-1.02); GFR AFRICAN AMERICAN 66 ML/MIN (>=60); GFR NON AFRICAN AMERICAN 57 ML/MIN (>=60); POTASSIUM, SERUM 3.8 MMOL/L (3.5-5.3); SODIUM, SERUM 137 MMOL/L (135-148)
[2017-05-14 19:05] LABS: GLUCOSE, SERUM 112 MG/DL (60-99)
[2017-05-14 19:18] LABS: RBC MORPHOLOGY NORM (NORMAL)
[2017-05-15 00:11] LABS: BASOPHILS 0.1 %; BASOPHILS ABSOLUTE 0.01 10/3/uL (0.0-0.16); EOSINOPHILS 0.3 %; EOSINOPHILS ABSOLUTE 0.03 10/3/uL (0.0-0.53); HEMATOCRIT 32.7 % (36.0-48.0); HEMOGLOBIN 10.7 g/dL (12.0-16.0); IMMATURE GRANULOCYTES 1.6 %; IMMATURE GRANULOCYTES ABSOLUTE 0.16 10/3/uL (0.0-0.11); LYMPHOCYTES 8.4 %; LYMPHOCYTES ABSOLUTE 0.86 10/3/uL (0.67-4.30); MEAN CORPUS HGB CONC 32.7 g/dL (32.0-36.0); MEAN CORPUSCULAR HEMOGLOB 30.7 pg (26.0-34.0); MEAN PLATELET VOLUME 13.1 fL (9.2-13.0); MONOCYTES 7.8 %; MONOCYTES ABSOLUTE 0.79 10/3/uL (0.21-1.20); NEUTROPHILS 81.8 %; NEUTROPHILS ABSOLUTE 8.33 10/3/uL (2.02-8.40); RBC DISTRIBUTION WIDTH 14.5 % (12.0-16.0); RED CELL COUNT 3.48 10/6/uL (4.0-5.6); WHITE BLOOD CELLS 10.2 10/3/uL (4.5-10.5)
[2017-05-15 00:12] LABS: MANUAL DIFF NO %; PLATELET COUNT 34 10/3/uL (150-400)
[2017-05-15 00:31] LABS: BUN (BLOOD UREA NITROGEN) 7 MG/DL (6-23); CALCIUM, SERUM 8.3 MG/DL (8.5-10.4); CHLORIDE, SERUM 101 MMOL/L (96-112); CO2 (CARBON DIOXIDE) 26 MMOL/L (24-34); CREATININE 0.87 MG/DL (0.55-1.02); GFR AFRICAN AMERICAN 79 ML/MIN (>=60); GFR NON AFRICAN AMERICAN 68 ML/MIN (>=60); PHOSPHORUS, SERUM 1.9 MG/DL (2.5-4.5); POTASSIUM, SERUM 3.7 MMOL/L (3.5-5.3); SODIUM, SERUM 140 MMOL/L (135-148)
[2017-05-15 00:36] LABS: GLUCOSE, SERUM 137 MG/DL (60-99)
[2017-05-15 03:55] LABS: BE (BASE EXCESS) -0.2 MEQ/L (0 +/- 2.5); CARBOXYHEMOGLOBIN 0.2 % (0-3); HCO3 (ACTUAL BICARBONATE) 24.6 MEQ/L (23-27); INSTRUMENT SERIAL # 35151; PCO2 (CO2 TENSION) 41 MMHG (35-45); PO2 (O2 TENSION) 92 MMHG (79-93)
[2017-05-15 03:56] LABS: ALLENS TEST Pos; HEMOBLOGIN CONTENT 10.9 G/DL (12-16); METHEMOGLOBIN 0.4 % (0-3); MODE CMV; O2 CONTENT 14.8 VOL% (18-24); OPERATOR ID 13415; SAMPLE Arterial; TIDAL VOLUME 500 ML
[2017-05-15 06:32] LABS: BASOPHILS 0.1 %; BASOPHILS ABSOLUTE 0.01 10/3/uL (0.0-0.16); EOSINOPHILS 0.6 %; EOSINOPHILS ABSOLUTE 0.06 10/3/uL (0.0-0.53); HEMOGLOBIN 10.3 g/dL (12.0-16.0); IMMATURE GRANULOCYTES ABSOLUTE 0.09 10/3/uL (0.0-0.11); LYMPHOCYTES 11.3 %; LYMPHOCYTES ABSOLUTE 1.04 10/3/uL (0.67-4.30); MEAN CORPUS HGB CONC 33.2 g/dL (32.0-36.0); MEAN CORPUSCULAR HEMOGLOB 31.3 pg (26.0-34.0); MEAN CORPUSCULAR VOLUME 94.2 fL (80-100); MEAN PLATELET VOLUME 12.6 fL (9.2-13.0); MONOCYTES 6.6 %; MONOCYTES ABSOLUTE 0.61 10/3/uL (0.21-1.20); NEUTROPHILS 80.4 %; NEUTROPHILS ABSOLUTE 7.43 10/3/uL (2.02-8.40); RBC DISTRIBUTION WIDTH 14.4 % (12.0-16.0); RED CELL COUNT 3.29 10/6/uL (4.0-5.6); WHITE BLOOD CELLS 9.2 10/3/uL (4.5-10.5)
[2017-05-15 06:37] LABS: PLATELET COUNT 36 10/3/uL (150-400)
[2017-05-15 06:38] LABS: MANUAL DIFF NO %
[2017-05-15 06:47] LABS: BUN (BLOOD UREA NITROGEN) 7 MG/DL (6-23); CALCIUM, SERUM 8.1 MG/DL (8.5-10.4); CHLORIDE, SERUM 102 MMOL/L (96-112); CO2 (CARBON DIOXIDE) 26 MMOL/L (24-34); CREATININE 0.84 MG/DL (0.55-1.02); GFR AFRICAN AMERICAN 82 ML/MIN (>=60); GFR NON AFRICAN AMERICAN 71 ML/MIN (>=60); GLUCOSE, SERUM 110 MG/DL (60-99); PHOSPHORUS, SERUM 3.1 MG/DL (2.5-4.5); POTASSIUM, SERUM 3.8 MMOL/L (3.5-5.3); SODIUM, SERUM 141 MMOL/L (135-148)
[2017-05-15 08:22] LABS: RBC MORPHOLOGY NORM (NORMAL)
[2017-05-15 12:41] LABS: BASOPHILS 0.2 %; BASOPHILS ABSOLUTE 0.02 10/3/uL (0.0-0.16); EOSINOPHILS 0.4 %; EOSINOPHILS ABSOLUTE 0.05 10/3/uL (0.0-0.53); HEMATOCRIT 32.4 % (36.0-48.0); HEMOGLOBIN 10.6 g/dL (12.0-16.0); IMMATURE GRANULOCYTES ABSOLUTE 0.25 10/3/uL (0.0-0.11); LYMPHOCYTES 6.6 %; LYMPHOCYTES ABSOLUTE 0.81 10/3/uL (0.67-4.30); MEAN CORPUS HGB CONC 32.7 g/dL (32.0-36.0); MEAN CORPUSCULAR HEMOGLOB 30.9 pg (26.0-34.0); MEAN CORPUSCULAR VOLUME 94.5 fL (80-100); MEAN PLATELET VOLUME 12.5 fL (9.2-13.0); MONOCYTES 8.9 %; MONOCYTES ABSOLUTE 1.09 10/3/uL (0.21-1.20); NEUTROPHILS 81.9 %; NEUTROPHILS ABSOLUTE 10.07 10/3/uL (2.02-8.40); RBC DISTRIBUTION WIDTH 14.6 % (12.0-16.0); RED CELL COUNT 3.43 10/6/uL (4.0-5.6); WHITE BLOOD CELLS 12.3 10/3/uL (4.5-10.5)
[2017-05-15 12:56] LABS: MANUAL DIFF NO %; PLATELET COUNT 36 10/3/uL (150-400)
[2017-05-15 13:01] LABS: BUN (BLOOD UREA NITROGEN) 6 MG/DL (6-23); CHLORIDE, SERUM 101 MMOL/L (96-112); CO2 (CARBON DIOXIDE) 28 MMOL/L (24-34); CREATININE 0.83 MG/DL (0.55-1.02); GFR AFRICAN AMERICAN 83 ML/MIN (>=60); GFR NON AFRICAN AMERICAN 72 ML/MIN (>=60); GLUCOSE, SERUM 107 MG/DL (60-99); PHOSPHORUS, SERUM 1.5 MG/DL (2.5-4.5); POTASSIUM, SERUM 3.7 MMOL/L (3.5-5.3); SODIUM, SERUM 138 MMOL/L (135-148)
[2017-05-15 13:28] LABS: RBC MORPHOLOGY NORM (NORMAL)
[2017-05-15 17:53] LABS: BASOPHILS 0.1 %; BASOPHILS ABSOLUTE 0.01 10/3/uL (0.0-0.16); EOSINOPHILS 0.4 %; EOSINOPHILS ABSOLUTE 0.05 10/3/uL (0.0-0.53); HEMATOCRIT 31.9 % (36.0-48.0); HEMOGLOBIN 10.4 g/dL (12.0-16.0); IMMATURE GRANULOCYTES 1.5 %; IMMATURE GRANULOCYTES ABSOLUTE 0.17 10/3/uL (0.0-0.11); LYMPHOCYTES ABSOLUTE 0.45 10/3/uL (0.67-4.30); MEAN CORPUS HGB CONC 32.6 g/dL (32.0-36.0); MEAN CORPUSCULAR VOLUME 94.9 fL (80-100); MEAN PLATELET VOLUME 12.9 fL (9.2-13.0); MONOCYTES 6.1 %; MONOCYTES ABSOLUTE 0.68 10/3/uL (0.21-1.20); NEUTROPHILS 87.9 %; NEUTROPHILS ABSOLUTE 9.85 10/3/uL (2.02-8.40); RBC DISTRIBUTION WIDTH 14.5 % (12.0-16.0); RED CELL COUNT 3.36 10/6/uL (4.0-5.6); WHITE BLOOD CELLS 11.2 10/3/uL (4.5-10.5)
[2017-05-15 17:59] LABS: MANUAL DIFF NO %; PLATELET COUNT 37 10/3/uL (150-400)
[2017-05-15 18:05] LABS: BUN (BLOOD UREA NITROGEN) 6 MG/DL (6-23); CALCIUM, SERUM 8.5 MG/DL (8.5-10.4); CHLORIDE, SERUM 104 MMOL/L (96-112); CO2 (CARBON DIOXIDE) 26 MMOL/L (24-34); CREATININE 0.96 MG/DL (0.55-1.02); GFR AFRICAN AMERICAN 70 ML/MIN (>=60); GFR NON AFRICAN AMERICAN 60 ML/MIN (>=60); GLUCOSE, SERUM 98 MG/DL (60-99); SODIUM, SERUM 139 MMOL/L (135-148)
[2017-05-15 18:40] LABS: TOXIC GRANULATION SLT
[2017-05-15 18:41] LABS: VACUOLATED NEUTROPHILES FEW
[2017-05-15 18:42] LABS: HELMET CELLS OCC (0-2/OIF); TEARDROP SHAPED RBCS OCC (0-2/OIF)
[2017-05-15 19:34] LABS: ALLENS TEST Pos; BE (BASE EXCESS) -4.8 MEQ/L (0 +/- 2.5); CARBOXYHEMOGLOBIN 0.3 % (0-3); DEVICE NC; HCO3 (ACTUAL BICARBONATE) 20.1 MEQ/L (23-27); HEMOBLOGIN CONTENT 12.2 G/DL (12-16); INSTRUMENT SERIAL # 35151; METHEMOGLOBIN 0.5 % (0-3); O2 CONTENT 16.7 VOL% (18-24); OPERATOR ID 13861; PCO2 (CO2 TENSION) 37 MMHG (35-45); PO2 (O2 TENSION) 106 MMHG (79-93); SAMPLE Arterial; pH 7.36 (7.37-7.43)
[2017-05-16 00:25] LABS: BASOPHILS 0.1 %; BASOPHILS ABSOLUTE 0.01 10/3/uL (0.0-0.16); EOSINOPHILS 0.4 %; EOSINOPHILS ABSOLUTE 0.03 10/3/uL (0.0-0.53); HEMATOCRIT 29.2 % (36.0-48.0); HEMOGLOBIN 9.3 g/dL (12.0-16.0); IMMATURE GRANULOCYTES 1.5 %; IMMATURE GRANULOCYTES ABSOLUTE 0.12 10/3/uL (0.0-0.11); LYMPHOCYTES 11.1 %; LYMPHOCYTES ABSOLUTE 0.91 10/3/uL (0.67-4.30); MEAN CORPUS HGB CONC 31.8 g/dL (32.0-36.0); MEAN CORPUSCULAR HEMOGLOB 30.3 pg (26.0-34.0); MEAN CORPUSCULAR VOLUME 95.1 fL (80-100); MONOCYTES 8.9 %; MONOCYTES ABSOLUTE 0.73 10/3/uL (0.21-1.20); RBC DISTRIBUTION WIDTH 14.7 % (12.0-16.0); RED CELL COUNT 3.07 10/6/uL (4.0-5.6); WHITE BLOOD CELLS 8.2 10/3/uL (4.5-10.5)
[2017-05-16 00:26] LABS: MANUAL DIFF NO %; PLATELET COUNT 19 10/3/uL (150-400)
[2017-05-16 01:25] LABS: GIANT PLATELET RARE
[2017-05-16 01:37] LABS: BUN (BLOOD UREA NITROGEN) 8 MG/DL (6-23); CALCIUM, SERUM 8.9 MG/DL (8.5-10.4); CHLORIDE, SERUM 105 MMOL/L (96-112); CO2 (CARBON DIOXIDE) 22 MMOL/L (24-34); GFR AFRICAN AMERICAN 67 ML/MIN (>=60); GFR NON AFRICAN AMERICAN 57 ML/MIN (>=60); POTASSIUM, SERUM 4.2 MMOL/L (3.5-5.3); SODIUM, SERUM 140 MMOL/L (135-148)
[2017-05-16 01:40] LABS: GLUCOSE, SERUM 148 MG/DL (60-99); PHOSPHORUS, SERUM 2.7 MG/DL (2.5-4.5)
[2017-05-16 05:27] LABS: INTERNATIONAL NORMAL RATI 1.4 UNITS (-); PARTIAL THROMBO TIME 30.9 SEC (22.5-37.2); PROTIME (NOT ORD) 16.7 SEC (12.0-14.5)
[2017-05-16 05:35] LABS: INTERNATIONAL NORMAL RATI 1.4 UNITS (-); PARTIAL THROMBO TIME 30.5 SEC (22.5-37.2); PROTIME (NOT ORD) 16.6 SEC (12.0-14.5)
[2017-05-16 05:55] LABS: D-DIMER QUANTITATIVE 11.64 ug/mLFEU (< 0.50)
[2017-05-16 07:13] LABS: BASOPHILS 0.3 %; BASOPHILS ABSOLUTE 0.03 10/3/uL (0.0-0.16); EOSINOPHILS 0.3 %; EOSINOPHILS ABSOLUTE 0.03 10/3/uL (0.0-0.53); HEMOGLOBIN 10.4 g/dL (12.0-16.0); LYMPHOCYTES ABSOLUTE 1.04 10/3/uL (0.67-4.30); MEAN CORPUS HGB CONC 31.7 g/dL (32.0-36.0); MEAN CORPUSCULAR HEMOGLOB 30.4 pg (26.0-34.0); MEAN CORPUSCULAR VOLUME 95.9 fL (80-100); MONOCYTES 9.6 %; NEUTROPHILS 78.8 %; NEUTROPHILS ABSOLUTE 8.21 10/3/uL (2.02-8.40); NUCLEATED RED BLOOD CELLS 0.2 /100WBC (0-0); RBC DISTRIBUTION WIDTH 14.6 % (12.0-16.0); RED CELL COUNT 3.42 10/6/uL (4.0-5.6); WHITE BLOOD CELLS 10.4 10/3/uL (4.5-10.5)
[2017-05-16 07:17] LABS: HEMATOCRIT 32.8 % (36.0-48.0); MANUAL DIFF NO %; PLATELET COUNT 37 10/3/uL (150-400)
[2017-05-16 07:35] LABS: ALKALINE PHOSPHATASE 103 U/L (45-117); BUN (BLOOD UREA NITROGEN) 9 MG/DL (6-23); CALCIUM, SERUM 9.2 MG/DL (8.5-10.4); CHLORIDE, SERUM 104 MMOL/L (96-112); CO2 (CARBON DIOXIDE) 22 MMOL/L (24-34); CREATININE 0.97 MG/DL (0.55-1.02); GFR AFRICAN AMERICAN 69 ML/MIN (>=60); GFR NON AFRICAN AMERICAN 60 ML/MIN (>=60); GLUCOSE, SERUM 148 MG/DL (60-99); POTASSIUM, SERUM 4.1 MMOL/L (3.5-5.3); SGOT(AST) 121 U/L (5-40); SGPT(ALT) 68 U/L (5-65); SODIUM, SERUM 138 MMOL/L (135-148); TOTAL PROTEIN 6.7 G/DL (6.0-8.5)
[2017-05-16 07:36] LABS: A/G RATIO 0.7 (0.7-1.9); ALBUMIN 2.8 G/DL (3.5-5.0); GLOBULIN 3.9 G/DL (2.5-4.1)
[2017-05-16 08:00] LABS: RBC MORPHOLOGY NORM (NORMAL)
[2017-05-16 12:05] LABS: BASOPHILS 0.2 %; BASOPHILS ABSOLUTE 0.02 10/3/uL (0.0-0.16); EOSINOPHILS 0.1 %; EOSINOPHILS ABSOLUTE 0.01 10/3/uL (0.0-0.53); HEMATOCRIT 31.3 % (36.0-48.0); IMMATURE GRANULOCYTES 0.9 %; LYMPHOCYTES 11.4 %; MEAN CORPUS HGB CONC 31.9 g/dL (32.0-36.0); MEAN CORPUSCULAR HEMOGLOB 30.6 pg (26.0-34.0); MEAN CORPUSCULAR VOLUME 95.7 fL (80-100); MEAN PLATELET VOLUME 13.5 fL (9.2-13.0); MONOCYTES 8.6 %; MONOCYTES ABSOLUTE 0.91 10/3/uL (0.21-1.20); NEUTROPHILS 78.8 %; NEUTROPHILS ABSOLUTE 8.33 10/3/uL (2.02-8.40); RBC DISTRIBUTION WIDTH 14.7 % (12.0-16.0); RED CELL COUNT 3.27 10/6/uL (4.0-5.6); WHITE BLOOD CELLS 10.6 10/3/uL (4.5-10.5)
[2017-05-16 12:12] LABS: MANUAL DIFF NO %; PLATELET COUNT 35 10/3/uL (150-400)
[2017-05-16 12:17] LABS: BUN (BLOOD UREA NITROGEN) 11 MG/DL (6-23); CALCIUM, SERUM 9.4 MG/DL (8.5-10.4); CHLORIDE, SERUM 105 MMOL/L (96-112); CO2 (CARBON DIOXIDE) 20 MMOL/L (24-34); GFR AFRICAN AMERICAN 67 ML/MIN (>=60); GFR NON AFRICAN AMERICAN 57 ML/MIN (>=60); GLUCOSE, SERUM 147 MG/DL (60-99); PHOSPHORUS, SERUM 1.9 MG/DL (2.5-4.5); POTASSIUM, SERUM 3.8 MMOL/L (3.5-5.3); SODIUM, SERUM 138 MMOL/L (135-148)
[2017-05-16 12:38] LABS: RBC MORPHOLOGY NORM (NORMAL)
[2017-05-16 18:11] LABS: BASOPHILS 0.1 %; BASOPHILS ABSOLUTE 0.01 10/3/uL (0.0-0.16); EOSINOPHILS 0 %; HEMATOCRIT 31.1 % (36.0-48.0); IMMATURE GRANULOCYTES 1.3 %; IMMATURE GRANULOCYTES ABSOLUTE 0.17 10/3/uL (0.0-0.11); LYMPHOCYTES 9.1 %; LYMPHOCYTES ABSOLUTE 1.15 10/3/uL (0.67-4.30); MEAN CORPUS HGB CONC 32.2 g/dL (32.0-36.0); MEAN CORPUSCULAR HEMOGLOB 30.6 pg (26.0-34.0); MEAN CORPUSCULAR VOLUME 95.1 fL (80-100); MEAN PLATELET VOLUME 13.6 fL (9.2-13.0); MONOCYTES 9.3 %; MONOCYTES ABSOLUTE 1.18 10/3/uL (0.21-1.20); NEUTROPHILS 80.2 %; NEUTROPHILS ABSOLUTE 10.18 10/3/uL (2.02-8.40); RBC DISTRIBUTION WIDTH 14.7 % (12.0-16.0); RED CELL COUNT 3.27 10/6/uL (4.0-5.6); WHITE BLOOD CELLS 12.7 10/3/uL (4.5-10.5)
[2017-05-16 18:12] LABS: MANUAL DIFF NO %; PLATELET COUNT 37 10/3/uL (150-400)
[2017-05-16 18:19] LABS: BUN (BLOOD UREA NITROGEN) 11 MG/DL (6-23); CALCIUM, SERUM 9.3 MG/DL (8.5-10.4); CHLORIDE, SERUM 104 MMOL/L (96-112); CO2 (CARBON DIOXIDE) 20 MMOL/L (24-34); GFR AFRICAN AMERICAN 87 ML/MIN (>=60); GFR NON AFRICAN AMERICAN 75 ML/MIN (>=60); GLUCOSE, SERUM 156 MG/DL (60-99); POTASSIUM, SERUM 3.6 MMOL/L (3.5-5.3); SODIUM, SERUM 138 MMOL/L (135-148)
[2017-05-16 18:29] LABS: RBC MORPHOLOGY NORM (NORMAL)
[2017-05-16 20:54] LABS: POTASSIUM, SERUM 3.7 MMOL/L (3.5-5.3)
[2017-05-17 01:18] LABS: BASOPHILS 0.1 %; BASOPHILS ABSOLUTE 0.01 10/3/uL (0.0-0.16); EOSINOPHILS 0.1 %; EOSINOPHILS ABSOLUTE 0.01 10/3/uL (0.0-0.53); HEMATOCRIT 31.6 % (36.0-48.0); HEMOGLOBIN 10.3 g/dL (12.0-16.0); IMMATURE GRANULOCYTES 1.2 %; IMMATURE GRANULOCYTES ABSOLUTE 0.15 10/3/uL (0.0-0.11); LYMPHOCYTES 8.5 %; LYMPHOCYTES ABSOLUTE 1.09 10/3/uL (0.67-4.30); MANUAL DIFF NO %; MEAN CORPUS HGB CONC 32.6 g/dL (32.0-36.0); MEAN CORPUSCULAR HEMOGLOB 30.8 pg (26.0-34.0); MEAN CORPUSCULAR VOLUME 94.6 fL (80-100); MONOCYTES 9.6 %; MONOCYTES ABSOLUTE 1.23 10/3/uL (0.21-1.20); NEUTROPHILS 80.5 %; PLATELET COUNT 39 10/3/uL (150-400); RBC DISTRIBUTION WIDTH 14.5 % (12.0-16.0); RED CELL COUNT 3.34 10/6/uL (4.0-5.6); WHITE BLOOD CELLS 12.8 10/3/uL (4.5-10.5)
[2017-05-17 01:30] LABS: BUN (BLOOD UREA NITROGEN) 12 MG/DL (6-23); CALCIUM, SERUM 9.9 MG/DL (8.5-10.4); CHLORIDE, SERUM 106 MMOL/L (96-112); CO2 (CARBON DIOXIDE) 19 MMOL/L (24-34); CREATININE 0.78 MG/DL (0.55-1.02); GFR AFRICAN AMERICAN 90 ML/MIN (>=60); GFR NON AFRICAN AMERICAN 78 ML/MIN (>=60); GLUCOSE, SERUM 141 MG/DL (60-99); POTASSIUM, SERUM 3.7 MMOL/L (3.5-5.3); SODIUM, SERUM 140 MMOL/L (135-148)
[2017-05-17 01:32] LABS: PHOSPHORUS, SERUM 2.3 MG/DL (2.5-4.5)
[2017-05-17 03:43] LABS: ALLENS TEST Pos; BE (BASE EXCESS) -8.6 MEQ/L (0 +/- 2.5); CARBOXYHEMOGLOBIN 0.5 % (0-3); DEVICE NC; HCO3 (ACTUAL BICARBONATE) 18.1 MEQ/L (23-27); HEMOBLOGIN CONTENT 11.8 G/DL (12-16); INSTRUMENT SERIAL # 35151; METHEMOGLOBIN 0.3 % (0-3); O2 CONTENT 16.2 VOL% (18-24); OPERATOR ID 16503; PCO2 (CO2 TENSION) 42 MMHG (35-45); PO2 (O2 TENSION) 107 MMHG (79-93); SAMPLE Arterial; pH 7.25 (7.37-7.43)
[2017-05-17 06:03] LABS: BASOPHILS 0.2 %; BASOPHILS ABSOLUTE 0.01 10/3/uL (0.0-0.16); EOSINOPHILS 0 %; HEMATOCRIT 29.9 % (36.0-48.0); HEMOGLOBIN 9.9 g/dL (12.0-16.0); IMMATURE GRANULOCYTES 1.5 %; IMMATURE GRANULOCYTES ABSOLUTE 0.06 10/3/uL (0.0-0.11); LYMPHOCYTES ABSOLUTE 0.69 10/3/uL (0.67-4.30); MEAN CORPUS HGB CONC 33.1 g/dL (32.0-36.0); MEAN CORPUSCULAR VOLUME 93.7 fL (80-100); MEAN PLATELET VOLUME 12.4 fL (9.2-13.0); MONOCYTES 6.9 %; MONOCYTES ABSOLUTE 0.28 10/3/uL (0.21-1.20); NEUTROPHILS 74.4 %; NEUTROPHILS ABSOLUTE 3.01 10/3/uL (2.02-8.40); RBC DISTRIBUTION WIDTH 14.6 % (12.0-16.0); RED CELL COUNT 3.19 10/6/uL (4.0-5.6)
[2017-05-17 06:05] LABS: MANUAL DIFF NO %; PLATELET COUNT 35 10/3/uL (150-400); WHITE BLOOD CELLS 4.1 10/3/uL (4.5-10.5)
[2017-05-17 06:25] LABS: BUN (BLOOD UREA NITROGEN) 12 MG/DL (6-23); CALCIUM, SERUM 9.3 MG/DL (8.5-10.4); CHLORIDE, SERUM 105 MMOL/L (96-112); CREATININE 0.82 MG/DL (0.55-1.02); GFR AFRICAN AMERICAN 85 ML/MIN (>=60); GFR NON AFRICAN AMERICAN 73 ML/MIN (>=60); GLUCOSE, SERUM 117 MG/DL (60-99); PHOSPHORUS, SERUM 2.8 MG/DL (2.5-4.5); POTASSIUM, SERUM 3.6 MMOL/L (3.5-5.3); SODIUM, SERUM 141 MMOL/L (135-148)
[2017-05-17 06:26] LABS: CO2 (CARBON DIOXIDE) 25 MMOL/L (24-34)
[2017-05-17 12:34] LABS: BASOPHILS 0.1 %; BASOPHILS ABSOLUTE 0.01 10/3/uL (0.0-0.16); EOSINOPHILS 0.1 %; EOSINOPHILS ABSOLUTE 0.01 10/3/uL (0.0-0.53); HEMATOCRIT 29.9 % (36.0-48.0); HEMOGLOBIN 9.9 g/dL (12.0-16.0); IMMATURE GRANULOCYTES 0.9 %; IMMATURE GRANULOCYTES ABSOLUTE 0.14 10/3/uL (0.0-0.11); LYMPHOCYTES 4.7 %; LYMPHOCYTES ABSOLUTE 0.71 10/3/uL (0.67-4.30); MEAN CORPUS HGB CONC 33.1 g/dL (32.0-36.0); MEAN CORPUSCULAR HEMOGLOB 31.2 pg (26.0-34.0); MEAN CORPUSCULAR VOLUME 94.3 fL (80-100); MEAN PLATELET VOLUME 13.5 fL (9.2-13.0); MONOCYTES 5.3 %; MONOCYTES ABSOLUTE 0.79 10/3/uL (0.21-1.20); NEUTROPHILS 88.9 %; NEUTROPHILS ABSOLUTE 13.29 10/3/uL (2.02-8.40); RBC DISTRIBUTION WIDTH 14.5 % (12.0-16.0); RED CELL COUNT 3.17 10/6/uL (4.0-5.6)
[2017-05-17 12:38] LABS: PLATELET COUNT 41 10/3/uL (150-400)
[2017-05-17 12:39] LABS: MANUAL DIFF NO %
[2017-05-17 13:01] LABS: BUN (BLOOD UREA NITROGEN) 11 MG/DL (6-23); CALCIUM, SERUM 9.6 MG/DL (8.5-10.4); CHLORIDE, SERUM 107 MMOL/L (96-112); CO2 (CARBON DIOXIDE) 21 MMOL/L (24-34); CREATININE 0.88 MG/DL (0.55-1.02); GFR AFRICAN AMERICAN 78 ML/MIN (>=60); GFR NON AFRICAN AMERICAN 67 ML/MIN (>=60); GLUCOSE, SERUM 102 MG/DL (60-99); POTASSIUM, SERUM 3.6 MMOL/L (3.5-5.3); SODIUM, SERUM 140 MMOL/L (135-148)
[2017-05-17 13:02] LABS: PHOSPHORUS, SERUM 1.4 MG/DL (2.5-4.5); RBC MORPHOLOGY NORM (NORMAL)
[2017-05-17 17:49] LABS: HEMATOCRIT 29.2 % (36.0-48.0); HEMOGLOBIN 9.5 g/dL (12.0-16.0); MEAN CORPUS HGB CONC 32.5 g/dL (32.0-36.0); MEAN CORPUSCULAR HEMOGLOB 30.6 pg (26.0-34.0); MEAN CORPUSCULAR VOLUME 94.2 fL (80-100); MEAN PLATELET VOLUME 13.1 fL (9.2-13.0); NUCLEATED RED BLOOD CELLS 0.5 /100WBC (0-0); RBC DISTRIBUTION WIDTH 14.9 % (12.0-16.0); WHITE BLOOD CELLS 19.7 10/3/uL (4.5-10.5)
[2017-05-17 17:53] LABS: PLATELET COUNT 40 10/3/uL (150-400)
[2017-05-17 17:54] LABS: MANUAL DIFF YES %
[2017-05-17 18:07] LABS: BUN (BLOOD UREA NITROGEN) 10 MG/DL (6-23); CALCIUM, SERUM 9.6 MG/DL (8.5-10.4); CHLORIDE, SERUM 107 MMOL/L (96-112); CO2 (CARBON DIOXIDE) 21 MMOL/L (24-34); CREATININE 0.75 MG/DL (0.55-1.02); GFR AFRICAN AMERICAN 94 ML/MIN (>=60); GFR NON AFRICAN AMERICAN 81 ML/MIN (>=60); GLUCOSE, SERUM 117 MG/DL (60-99); POTASSIUM, SERUM 3.9 MMOL/L (3.5-5.3); SODIUM, SERUM 139 MMOL/L (135-148)
[2017-05-17 18:08] LABS: PHOSPHORUS, SERUM 3.5 MG/DL (2.5-4.5)
[2017-05-17 18:28] LABS: BAND NEUTROPHILS 19 %; LYMPHOCYTES 8 %; LYMPHOCYTES ABSOLUTE (CALC) 1.58 10/3/uL (0.67-4.30); MONOCYTES 2 %; MONOCYTES ABSOLUTE (CALC) 0.39 10/3/uL (0.21-1.20); NEUTROPHILS ABSOLUTE (CALC) 17.73 10/3/uL (2.02-8.40); SEGMENTED NEUTROPHIL (0) 71 %; TOTAL NUCLEATED CELLS 100
[2017-05-17 18:29] LABS: RBC MORPHOLOGY NORM (NORMAL); TOXIC GRANULATION 1+
[2017-05-18 01:04] LABS: BUN (BLOOD UREA NITROGEN) 11 MG/DL (6-23); CALCIUM, SERUM 9.6 MG/DL (8.5-10.4); CHLORIDE, SERUM 107 MMOL/L (96-112); CO2 (CARBON DIOXIDE) 22 MMOL/L (24-34); GFR AFRICAN AMERICAN 87 ML/MIN (>=60); GFR NON AFRICAN AMERICAN 75 ML/MIN (>=60); GLUCOSE, SERUM 104 MG/DL (60-99); PHOSPHORUS, SERUM 2.7 MG/DL (2.5-4.5); POTASSIUM, SERUM 3.6 MMOL/L (3.5-5.3); SODIUM, SERUM 142 MMOL/L (135-148)
[2017-05-18 01:07] LABS: BASOPHILS 0.1 %; BASOPHILS ABSOLUTE 0.01 10/3/uL (0.0-0.16); EOSINOPHILS 0.2 %; EOSINOPHILS ABSOLUTE 0.03 10/3/uL (0.0-0.53); HEMATOCRIT 29.5 % (36.0-48.0); HEMOGLOBIN 9.6 g/dL (12.0-16.0); IMMATURE GRANULOCYTES 1.8 %; IMMATURE GRANULOCYTES ABSOLUTE 0.29 10/3/uL (0.0-0.11); LYMPHOCYTES 8.5 %; MEAN CORPUS HGB CONC 32.5 g/dL (32.0-36.0); MEAN CORPUSCULAR HEMOGLOB 30.8 pg (26.0-34.0); MEAN CORPUSCULAR VOLUME 94.6 fL (80-100); MONOCYTES 6.7 %; NEUTROPHILS 82.7 %; NUCLEATED RED BLOOD CELLS 0.7 /100WBC (0-0); RBC DISTRIBUTION WIDTH 14.9 % (12.0-16.0); RED CELL COUNT 3.12 10/6/uL (4.0-5.6); WHITE BLOOD CELLS 16.5 10/3/uL (4.5-10.5)
[2017-05-18 01:08] LABS: MEAN PLATELET VOLUME 13.8 fL (9.2-13.0); PLATELET COUNT 46 10/3/uL (150-400)
[2017-05-18 01:09] LABS: MANUAL DIFF NO %
[2017-05-18 01:19] LABS: PLATELET ESTIMATE DEC (ADEQUATE)
[2017-05-18 01:20] LABS: ANISOCYTOSIS 1+ (5-10/OIF) (0-5/OIF); BASOPHILIC STIPPLING 1+ (2-5/OIF) (0-1/OIF); HYPOCHROMIA 1+ (3-10/OIF) (0-2/OIF)
[2017-05-18 03:39] LABS: ALLENS TEST Pos; BE (BASE EXCESS) -7.8 MEQ/L (0 +/- 2.5); CARBOXYHEMOGLOBIN 0.7 % (0-3); DEVICE NC; HCO3 (ACTUAL BICARBONATE) 19.3 MEQ/L (23-27); HEMOBLOGIN CONTENT 10.3 G/DL (12-16); INSTRUMENT SERIAL # 35151; METHEMOGLOBIN 0.5 % (0-3); O2 CONTENT 13.9 VOL% (18-24); OPERATOR ID 16503; PCO2 (CO2 TENSION) 46 MMHG (35-45); PO2 (O2 TENSION) 95 MMHG (79-93); SAMPLE Arterial; pH 7.24 (7.37-7.43)
[2017-05-18 06:44] LABS: RED CELL COUNT 3.13 10/6/uL (4.0-5.6); WHITE BLOOD CELLS 13.9 10/3/uL (4.5-10.5)
[2017-05-18 06:45] LABS: BASOPHILS 0.1 %; BASOPHILS ABSOLUTE 0.02 10/3/uL (0.0-0.16); EOSINOPHILS 0.2 %; EOSINOPHILS ABSOLUTE 0.03 10/3/uL (0.0-0.53); HEMATOCRIT 29.8 % (36.0-48.0); HEMOGLOBIN 9.6 g/dL (12.0-16.0); IMMATURE GRANULOCYTES 1.2 %; IMMATURE GRANULOCYTES ABSOLUTE 0.17 10/3/uL (0.0-0.11); LYMPHOCYTES 6.7 %; LYMPHOCYTES ABSOLUTE 0.93 10/3/uL (0.67-4.30); MANUAL DIFF NO %; MEAN CORPUS HGB CONC 32.2 g/dL (32.0-36.0); MEAN CORPUSCULAR HEMOGLOB 30.7 pg (26.0-34.0); MEAN CORPUSCULAR VOLUME 95.2 fL (80-100); MONOCYTES 3.9 %; MONOCYTES ABSOLUTE 0.54 10/3/uL (0.21-1.20); NEUTROPHILS 87.9 %; NEUTROPHILS ABSOLUTE 12.17 10/3/uL (2.02-8.40); NUCLEATED RED BLOOD CELLS 0.6 /100WBC (0-0)
[2017-05-18 06:46] LABS: PLATELET COUNT 41 10/3/uL (150-400)
[2017-05-18 06:56] LABS: PLATELET ESTIMATE DEC (ADEQUATE)
[2017-05-18 06:57] LABS: MICROCYTES 1+ (5-10/OIF) (0-5/OIF)
[2017-05-18 07:00] LABS: BUN (BLOOD UREA NITROGEN) 10 MG/DL (6-23); CALCIUM, SERUM 10.3 MG/DL (8.5-10.4); CHLORIDE, SERUM 107 MMOL/L (96-112); CO2 (CARBON DIOXIDE) 21 MMOL/L (24-34); CREATININE 0.87 MG/DL (0.55-1.02); GFR AFRICAN AMERICAN 79 ML/MIN (>=60); GFR NON AFRICAN AMERICAN 68 ML/MIN (>=60); GLUCOSE, SERUM 99 MG/DL (60-99); PHOSPHORUS, SERUM 2.7 MG/DL (2.5-4.5); POTASSIUM, SERUM 3.7 MMOL/L (3.5-5.3); SODIUM, SERUM 140 MMOL/L (135-148)
[2017-05-18 10:48] LABS: A/G RATIO 0.9 (0.7-1.9); GLOBULIN 3.3 G/DL (2.5-4.1); SGOT(AST) 96 U/L (5-40); SGPT(ALT) 57 U/L (5-65); TOTAL PROTEIN 6.3 G/DL (6.0-8.5)
[2017-05-18 10:49] LABS: ALKALINE PHOSPHATASE 233 U/L (45-117); TOTAL BILIRUBIN 2.1 MG/DL (0-1.2)
[2017-05-18 11:03] LABS: ASCORBIC ACID (UR NOT ORDER) NEG (NEG); BILIRUBIN, URINE NEGATIVE (NEG); KETONE, URINE NEGATIVE (NEG); LEUKOCYTE ESTERASE(NOT OR MOD (NEG); WBC (NOT ORDERED) (RFLEX) 22 (0-5)
[2017-05-19 03:47] LABS: HEMATOCRIT 28.4 % (36.0-48.0); HEMOGLOBIN 9.5 g/dL (12.0-16.0); MEAN CORPUS HGB CONC 33.5 g/dL (32.0-36.0); MEAN CORPUSCULAR HEMOGLOB 31.8 pg (26.0-34.0); MEAN PLATELET VOLUME 13.3 fL (9.2-13.0); RBC DISTRIBUTION WIDTH 15.1 % (12.0-16.0); RED CELL COUNT 2.99 10/6/uL (4.0-5.6); WHITE BLOOD CELLS 15.2 10/3/uL (4.5-10.5)
[2017-05-19 03:48] LABS: MANUAL DIFF YES %; PLATELET COUNT 54 10/3/uL (150-400)
[2017-05-19 03:54] LABS: ALBUMIN 2.9 G/DL (3.5-5.0); BUN (BLOOD UREA NITROGEN) 25 MG/DL (6-23); CALCIUM, SERUM 8.8 MG/DL (8.5-10.4); CHLORIDE, SERUM 107 MMOL/L (96-112); CO2 (CARBON DIOXIDE) 23 MMOL/L (24-34); GFR AFRICAN AMERICAN 27 ML/MIN (>=60); GFR NON AFRICAN AMERICAN 23 ML/MIN (>=60); GLUCOSE, SERUM 87 MG/DL (60-99); PHOSPHORUS, SERUM 3.2 MG/DL (2.5-4.5); POTASSIUM, SERUM 3.3 MMOL/L (3.5-5.3); SODIUM, SERUM 142 MMOL/L (135-148)
[2017-05-19 04:08] LABS: BAND NEUTROPHILS 10 %; EOSINOPHILS 1 %; EOSINOPHILS ABSOLUTE (CALC) 0.15 10/3/uL (0.0-0.53); IMMATURE GRANS ABSOLUTE (CALC) 0.61 10/3/uL (0.0-0.11); LYMPHOCYTES 7 %; LYMPHOCYTES ABSOLUTE (CALC) 1.06 10/3/uL (0.67-4.30); METAMYELOCYTES 4 %; MONOCYTES 2 %; NEUTROPHILS ABSOLUTE (CALC) 13.07 10/3/uL (2.02-8.40); PLATELET ESTIMATE DEC (ADEQUATE); RBC MORPHOLOGY NORM (NORMAL); SEGMENTED NEUTROPHIL (0) 76 %; TOTAL NUCLEATED CELLS 100
[2017-05-19 04:27] LABS: PROCALCITONIN 30.22 ng/mL (<0.5)
[2017-05-19 10:19] LABS: BUN (BLOOD UREA NITROGEN) 23 MG/DL (6-23); CHLORIDE, SERUM 102 MMOL/L (96-112); CO2 (CARBON DIOXIDE) 20 MMOL/L (24-34); CREATININE 2.07 MG/DL (0.55-1.02); GFR AFRICAN AMERICAN 28 ML/MIN (>=60); GFR NON AFRICAN AMERICAN 24 ML/MIN (>=60); GLUCOSE, SERUM 87 MG/DL (60-99); PHOSPHORUS, SERUM 2.5 MG/DL (2.5-4.5); SODIUM, SERUM 136 MMOL/L (135-148)
[2017-05-19 10:22] LABS: ALBUMIN 6.3 G/DL (3.5-5.0); CALCIUM, SERUM 6.8 MG/DL (8.5-10.4); POTASSIUM, SERUM 2.9 MMOL/L (3.5-5.3)
[2017-05-19 11:10] LABS: HEPATITIS B SURFACE ANTIGEN NON-REACTIVE (NON-REACT)
[2017-05-19 11:37] LABS: HEPATITIS B CORE AB IGM NON-REACTIVE (NON-REAC); HEPATITIS C ANTIBODY NON-REACTIVE (NON-REACT)
[2017-05-19 11:38] LABS: HIV COMBO NON-REACTIVE (NON REAC)
[2017-05-19 11:39] LABS: HEP A ANTIBODY IGM NON-REACTIVE (NON-REACT)
[2017-05-19 17:57] LABS: HEMATOCRIT 26.9 % (36.0-48.0); HEMOGLOBIN 8.6 g/dL (12.0-16.0); MEAN CORPUSCULAR HEMOGLOB 30.3 pg (26.0-34.0); MEAN CORPUSCULAR VOLUME 94.7 fL (80-100); MEAN PLATELET VOLUME 12.9 fL (9.2-13.0); NUCLEATED RED BLOOD CELLS 0.4 /100WBC (0-0); PLATELET COUNT 62 10/3/uL (150-400); RED CELL COUNT 2.84 10/6/uL (4.0-5.6); WHITE BLOOD CELLS 16.2 10/3/uL (4.5-10.5)
[2017-05-19 17:59] LABS: MANUAL DIFF YES %
[2017-05-19 18:17] LABS: BUN (BLOOD UREA NITROGEN) 18 MG/DL (6-23); CALCIUM, SERUM 7.5 MG/DL (8.5-10.4); CHLORIDE, SERUM 107 MMOL/L (96-112); CO2 (CARBON DIOXIDE) 24 MMOL/L (24-34); CREATININE 1.79 MG/DL (0.55-1.02); GFR AFRICAN AMERICAN 33 ML/MIN (>=60); GFR NON AFRICAN AMERICAN 28 ML/MIN (>=60); GLUCOSE, SERUM 115 MG/DL (60-99); POTASSIUM, SERUM 3.4 MMOL/L (3.5-5.3); SODIUM, SERUM 143 MMOL/L (135-148)
[2017-05-19 19:10] LABS: BAND NEUTROPHILS 6 %; IMMATURE GRANS ABSOLUTE (CALC) 0.97 10/3/uL (0.0-0.11); LYMPHOCYTES 5 %; LYMPHOCYTES ABSOLUTE (CALC) 0.81 10/3/uL (0.67-4.30); METAMYELOCYTES 5 %; MONOCYTES 5 %; MONOCYTES ABSOLUTE (CALC) 0.81 10/3/uL (0.21-1.20); MYELOCYTES 1 %; NEUTROPHILS ABSOLUTE (CALC) 13.61 10/3/uL (2.02-8.40); PLATELET ESTIMATE DEC (ADEQUATE); POLYCHROMASIA 1+ (2-5/OIF) (0-1/OIF); SEGMENTED NEUTROPHIL (0) 78 %; TOTAL NUCLEATED CELLS 100
[2017-05-19 22:55] LABS: POTASSIUM, SERUM 3.9 MMOL/L (3.5-5.3)
[2017-05-20 04:34] LABS: HEMATOCRIT 27.5 % (36.0-48.0); MANUAL DIFF YES %; MEAN CORPUS HGB CONC 32.7 g/dL (32.0-36.0); MEAN CORPUSCULAR HEMOGLOB 30.8 pg (26.0-34.0); MEAN CORPUSCULAR VOLUME 94.2 fL (80-100); MEAN PLATELET VOLUME 12.7 fL (9.2-13.0); PLATELET COUNT 78 10/3/uL (150-400); RED CELL COUNT 2.92 10/6/uL (4.0-5.6)
[2017-05-20 04:47] LABS: CALCIUM, SERUM 8.3 MG/DL (8.5-10.4); CHLORIDE, SERUM 100 MMOL/L (96-112); CO2 (CARBON DIOXIDE) 27 MMOL/L (24-34); CREATININE 2.05 MG/DL (0.55-1.02); GFR AFRICAN AMERICAN 28 ML/MIN (>=60); GFR NON AFRICAN AMERICAN 24 ML/MIN (>=60); POTASSIUM, SERUM 3.5 MMOL/L (3.5-5.3); SGOT(AST) 60 U/L (5-40); SGPT(ALT) 18 U/L (5-65); TOTAL PROTEIN 6.6 G/DL (6.0-8.5)
[2017-05-20 04:50] LABS: ALBUMIN 3.3 G/DL (3.5-5.0); ALKALINE PHOSPHATASE 98 U/L (45-117); BUN (BLOOD UREA NITROGEN) 24 MG/DL (6-23); GLOBULIN 3.3 G/DL (2.5-4.1); GLUCOSE, SERUM 149 MG/DL (60-99); SODIUM, SERUM 135 MMOL/L (135-148); TOTAL BILIRUBIN 2.6 MG/DL (0-1.2)
[2017-05-20 04:55] LABS: BAND NEUTROPHILS 4 %; BASOPHILS 1 %; BASOPHILS ABSOLUTE (CALC) 0.18 10/3/uL (0.0-0.16); IMMATURE GRANS ABSOLUTE (CALC) 0.54 10/3/uL (0.0-0.11); LYMPHOCYTES 13 %; LYMPHOCYTES ABSOLUTE (CALC) 2.34 10/3/uL (0.67-4.30); METAMYELOCYTES 3 %; MONOCYTES 7 %; MONOCYTES ABSOLUTE (CALC) 1.26 10/3/uL (0.21-1.20); NEUTROPHILS ABSOLUTE (CALC) 13.68 10/3/uL (2.02-8.40); SEGMENTED NEUTROPHIL (0) 72 %; STOMATOCYTES 1+ (3-10/OIF) (0-2/OIF); TOTAL NUCLEATED CELLS 100; TOXIC GRANULATION 1+
[2017-05-20 04:56] LABS: GIANT PLATELET OCC; MACROCYTES 1+ (5-10/OIF) (0-5/OIF); PLATELET ESTIMATE DEC (ADEQUATE); POLYCHROMASIA 1+ (2-5/OIF) (0-1/OIF); VACUOLATED NEUTROPHILES FEW
[2017-05-20 14:48] LABS: PROCALCITONIN 20.75 ng/mL (<0.5)
[2017-05-21 03:06] LABS: HEMATOCRIT 25.2 % (36.0-48.0); HEMOGLOBIN 8.6 g/dL (12.0-16.0); MEAN CORPUS HGB CONC 34.1 g/dL (32.0-36.0); MEAN CORPUSCULAR HEMOGLOB 31.6 pg (26.0-34.0); MEAN CORPUSCULAR VOLUME 92.6 fL (80-100); MEAN PLATELET VOLUME 12.2 fL (9.2-13.0); PLATELET COUNT 88 10/3/uL (150-400); RBC DISTRIBUTION WIDTH 14.9 % (12.0-16.0); RED CELL COUNT 2.72 10/6/uL (4.0-5.6)
[2017-05-21 03:10] LABS: MANUAL DIFF YES %
[2017-05-21 03:23] LABS: ALBUMIN 3.3 G/DL (3.5-5.0); ALKALINE PHOSPHATASE 92 U/L (45-117); CHLORIDE, SERUM 101 MMOL/L (96-112); CO2 (CARBON DIOXIDE) 26 MMOL/L (24-34); GLOBULIN 3.3 G/DL (2.5-4.1); PHOSPHORUS, SERUM 2.4 MG/DL (2.5-4.5); POTASSIUM, SERUM 3.4 MMOL/L (3.5-5.3); SGOT(AST) 41 U/L (5-40); SGPT(ALT) 13 U/L (5-65); SODIUM, SERUM 137 MMOL/L (135-148); TOTAL BILIRUBIN 2.7 MG/DL (0-1.2); TOTAL PROTEIN 6.6 G/DL (6.0-8.5)
[2017-05-21 03:24] LABS: BUN (BLOOD UREA NITROGEN) 36 MG/DL (6-23); GFR AFRICAN AMERICAN 20 ML/MIN (>=60); GFR NON AFRICAN AMERICAN 17 ML/MIN (>=60); GLUCOSE, SERUM 101 MG/DL (60-99)
[2017-05-21 07:35] LABS: BAND NEUTROPHILS 9 %; IMMATURE GRANS ABSOLUTE (CALC) 0.45 10/3/uL (0.0-0.11); LYMPHOCYTES 7 %; LYMPHOCYTES ABSOLUTE (CALC) 1.05 10/3/uL (0.67-4.30); METAMYELOCYTES 3 %; MONOCYTES 1 %; MONOCYTES ABSOLUTE (CALC) 0.15 10/3/uL (0.21-1.20); NEUTROPHILS ABSOLUTE (CALC) 13.35 10/3/uL (2.02-8.40); PLATELET ESTIMATE DEC (ADEQUATE); RBC MORPHOLOGY NORM (NORMAL); SEGMENTED NEUTROPHIL (0) 80 %; TOTAL NUCLEATED CELLS 100
[2017-05-21 07:36] LABS: TOXIC GRANULATION SLT
[2017-05-21 08:18] LABS: A/G RATIO 0.9 (0.7-1.9); ALBUMIN 3.2 G/DL (3.5-5.0); ALKALINE PHOSPHATASE 92 U/L (45-117); BUN (BLOOD UREA NITROGEN) 37 MG/DL (6-23); CALCIUM, SERUM 8.2 MG/DL (8.5-10.4); CHLORIDE, SERUM 104 MMOL/L (96-112); CO2 (CARBON DIOXIDE) 24 MMOL/L (24-34); CREATININE 2.79 MG/DL (0.55-1.02); GFR AFRICAN AMERICAN 19 ML/MIN (>=60); GFR NON AFRICAN AMERICAN 17 ML/MIN (>=60); GLOBULIN 3.6 G/DL (2.5-4.1); GLUCOSE, SERUM 123 MG/DL (60-99); POTASSIUM, SERUM 3.8 MMOL/L (3.5-5.3); SGOT(AST) 37 U/L (5-40); SGPT(ALT) 11 U/L (5-65); SODIUM, SERUM 139 MMOL/L (135-148); TOTAL BILIRUBIN 2.9 MG/DL (0-1.2); TOTAL PROTEIN 6.8 G/DL (6.0-8.5)
[2017-05-22 04:49] LABS: BASOPHILS 0.2 %; BASOPHILS ABSOLUTE 0.02 10/3/uL (0.0-0.16); EOSINOPHILS 0.6 %; EOSINOPHILS ABSOLUTE 0.06 10/3/uL (0.0-0.53); HEMATOCRIT 24.4 % (36.0-48.0); HEMOGLOBIN 8.2 g/dL (12.0-16.0); IMMATURE GRANULOCYTES 3.5 %; IMMATURE GRANULOCYTES ABSOLUTE 0.36 10/3/uL (0.0-0.11); LYMPHOCYTES 9.3 %; LYMPHOCYTES ABSOLUTE 0.96 10/3/uL (0.67-4.30); MEAN CORPUS HGB CONC 33.6 g/dL (32.0-36.0); MEAN CORPUSCULAR HEMOGLOB 31.4 pg (26.0-34.0); MEAN CORPUSCULAR VOLUME 93.5 fL (80-100); MONOCYTES 9.3 %; MONOCYTES ABSOLUTE 0.96 10/3/uL (0.21-1.20); NEUTROPHILS 77.1 %; NEUTROPHILS ABSOLUTE 7.92 10/3/uL (2.02-8.40); RBC DISTRIBUTION WIDTH 15.1 % (12.0-16.0); RED CELL COUNT 2.61 10/6/uL (4.0-5.6); WHITE BLOOD CELLS 10.3 10/3/uL (4.5-10.5)
[2017-05-22 04:56] LABS: MANUAL DIFF NO %; PLATELET COUNT 115 10/3/uL (150-400)
[2017-05-22 05:05] LABS: ALBUMIN 3.1 G/DL (3.5-5.0); CALCIUM, SERUM 8.7 MG/DL (8.5-10.4); CHLORIDE, SERUM 102 MMOL/L (96-112); CO2 (CARBON DIOXIDE) 24 MMOL/L (24-34); GFR AFRICAN AMERICAN 19 ML/MIN (>=60); GFR NON AFRICAN AMERICAN 17 ML/MIN (>=60); GLUCOSE, SERUM 129 MG/DL (60-99); POTASSIUM, SERUM 3.4 MMOL/L (3.5-5.3); SODIUM, SERUM 139 MMOL/L (135-148)
[2017-05-22 05:06] LABS: BUN (BLOOD UREA NITROGEN) 43 MG/DL (6-23); PHOSPHORUS, SERUM 3.2 MG/DL (2.5-4.5)
[2017-05-23 04:28] LABS: BASOPHILS 0.1 %; BASOPHILS ABSOLUTE 0.01 10/3/uL (0.0-0.16); EOSINOPHILS 0.8 %; EOSINOPHILS ABSOLUTE 0.09 10/3/uL (0.0-0.53); HEMATOCRIT 23.8 % (36.0-48.0); HEMOGLOBIN 7.8 g/dL (12.0-16.0); IMMATURE GRANULOCYTES 2.1 %; IMMATURE GRANULOCYTES ABSOLUTE 0.24 10/3/uL (0.0-0.11); LYMPHOCYTES 8.2 %; LYMPHOCYTES ABSOLUTE 0.96 10/3/uL (0.67-4.30); MEAN CORPUS HGB CONC 32.8 g/dL (32.0-36.0); MEAN CORPUSCULAR HEMOGLOB 30.7 pg (26.0-34.0); MEAN CORPUSCULAR VOLUME 93.7 fL (80-100); MEAN PLATELET VOLUME 11.7 fL (9.2-13.0); MONOCYTES 8.1 %; MONOCYTES ABSOLUTE 0.95 10/3/uL (0.21-1.20); NEUTROPHILS 80.7 %; NEUTROPHILS ABSOLUTE 9.44 10/3/uL (2.02-8.40); PLATELET COUNT 133 10/3/uL (150-400); RBC DISTRIBUTION WIDTH 15.3 % (12.0-16.0); RED CELL COUNT 2.54 10/6/uL (4.0-5.6); WHITE BLOOD CELLS 11.7 10/3/uL (4.5-10.5)
[2017-05-23 04:33] LABS: INTERNATIONAL NORMAL RATI 1.1 UNITS (-); MANUAL DIFF NO %; PROTIME (NOT ORD) 14.2 SEC (12.0-14.5)
[2017-05-23 04:46] LABS: ALBUMIN 3.5 G/DL (3.5-5.0); ALKALINE PHOSPHATASE 74 U/L (45-117); BUN (BLOOD UREA NITROGEN) 46 MG/DL (6-23); CALCIUM, SERUM 8.3 MG/DL (8.5-10.4); CHLORIDE, SERUM 102 MMOL/L (96-112); CO2 (CARBON DIOXIDE) 27 MMOL/L (24-34); CREATININE 2.78 MG/DL (0.55-1.02); DIRECT BILIRUBIN 1.3 MG/DL (0.0-0.4); GFR AFRICAN AMERICAN 19 ML/MIN (>=60); GFR NON AFRICAN AMERICAN 17 ML/MIN (>=60); GLOBULIN 3.6 G/DL (2.5-4.1); GLUCOSE, SERUM 128 MG/DL (60-99); INDIRECT BILIRUBIN(NOT ORDER) 1.4 MG/DL (0.1-0.9); PHOSPHORUS, SERUM 3.1 MG/DL (2.5-4.5); POTASSIUM, SERUM 3.6 MMOL/L (3.5-5.3); SGOT(AST) 29 U/L (5-40); SGPT(ALT) 12 U/L (5-65); SODIUM, SERUM 139 MMOL/L (135-148); TOTAL BILIRUBIN 2.7 MG/DL (0-1.2); TOTAL PROTEIN 7.1 G/DL (6.0-8.5)
[2017-05-24 03:58] LABS: HEMATOCRIT 21.8 % (36.0-48.0); HEMOGLOBIN 7.2 g/dL (12.0-16.0); MEAN PLATELET VOLUME 10.7 fL (9.2-13.0); PLATELET COUNT 146 10/3/uL (150-400); RBC DISTRIBUTION WIDTH 15.2 % (12.0-16.0); RED CELL COUNT 2.32 10/6/uL (4.0-5.6); WHITE BLOOD CELLS 9.3 10/3/uL (4.5-10.5)
[2017-05-24 04:05] LABS: MANUAL DIFF YES %
[2017-05-24 04:08] LABS: ALBUMIN 3.1 G/DL (3.5-5.0); BUN (BLOOD UREA NITROGEN) 43 MG/DL (6-23); CALCIUM, SERUM 7.9 MG/DL (8.5-10.4); CHLORIDE, SERUM 100 MMOL/L (96-112); CO2 (CARBON DIOXIDE) 27 MMOL/L (24-34); CREATININE 2.69 MG/DL (0.55-1.02); GFR AFRICAN AMERICAN 20 ML/MIN (>=60); GFR NON AFRICAN AMERICAN 17 ML/MIN (>=60); GLUCOSE, SERUM 135 MG/DL (60-99); PHOSPHORUS, SERUM 2.7 MG/DL (2.5-4.5); POTASSIUM, SERUM 3.2 MMOL/L (3.5-5.3); SODIUM, SERUM 136 MMOL/L (135-148)
[2017-05-24 04:20] LABS: BAND NEUTROPHILS 14 %; IMMATURE GRANS ABSOLUTE (CALC) 0.09 10/3/uL (0.0-0.11); LYMPHOCYTES 5 %; LYMPHOCYTES ABSOLUTE (CALC) 0.47 10/3/uL (0.67-4.30); METAMYELOCYTES 1 %; NEUTROPHILS ABSOLUTE (CALC) 8.74 10/3/uL (2.02-8.40); SEGMENTED NEUTROPHIL (0) 80 %; TARGET CELLS OCC (1-2/OIF) (0-1/OIF); TOTAL NUCLEATED CELLS 100
[2017-05-24 04:29] LABS: PROCALCITONIN 4.63 ng/mL (<0.5)
[2017-05-24 10:37] LABS: ASCORBIC ACID (UR NOT ORDER) NEG (NEG); BILIRUBIN, URINE NEGATIVE (NEG); KETONE, URINE NEGATIVE (NEG); LEUKOCYTE ESTERASE(NOT OR SMALL (NEG); WBC (NOT ORDERED) (RFLEX) 47 (0-5)
[2017-05-25 04:01] LABS: HEMATOCRIT 21.5 % (36.0-48.0); HEMOGLOBIN 7.2 g/dL (12.0-16.0); MEAN CORPUS HGB CONC 33.5 g/dL (32.0-36.0); MEAN CORPUSCULAR HEMOGLOB 31.3 pg (26.0-34.0); MEAN CORPUSCULAR VOLUME 93.5 fL (80-100); MEAN PLATELET VOLUME 10.6 fL (9.2-13.0); PLATELET COUNT 162 10/3/uL (150-400); WHITE BLOOD CELLS 9.5 10/3/uL (4.5-10.5)
[2017-05-25 04:06] LABS: MANUAL DIFF YES %
[2017-05-25 04:15] LABS: ALBUMIN 2.8 G/DL (3.5-5.0); CALCIUM, SERUM 8.4 MG/DL (8.5-10.4); CHLORIDE, SERUM 99 MMOL/L (96-112); CO2 (CARBON DIOXIDE) 27 MMOL/L (24-34); CREATININE 2.29 MG/DL (0.55-1.02); GFR AFRICAN AMERICAN 24 ML/MIN (>=60); GFR NON AFRICAN AMERICAN 21 ML/MIN (>=60); GLUCOSE, SERUM 141 MG/DL (60-99); PHOSPHORUS, SERUM 3.2 MG/DL (2.5-4.5); POTASSIUM, SERUM 3.1 MMOL/L (3.5-5.3); SODIUM, SERUM 135 MMOL/L (135-148)
[2017-05-25 04:17] LABS: BUN (BLOOD UREA NITROGEN) 49 MG/DL (6-23)
[2017-05-25 04:25] LABS: BAND NEUTROPHILS 6 %; LYMPHOCYTES 12 %; LYMPHOCYTES ABSOLUTE (CALC) 1.14 10/3/uL (0.67-4.30); MONOCYTES 5 %; MONOCYTES ABSOLUTE (CALC) 0.48 10/3/uL (0.21-1.20); NEUTROPHILS ABSOLUTE (CALC) 7.89 10/3/uL (2.02-8.40); SEGMENTED NEUTROPHIL (0) 77 %; TOTAL NUCLEATED CELLS 100
[2017-05-25 04:27] LABS: BASOPHILIC STIPPLING 1+ (2-5/OIF) (0-1/OIF); GIANT PLATELET OCC; PLATELET ESTIMATE ADQ (ADEQUATE); POLYCHROMASIA 1+ (2-5/OIF) (0-1/OIF)
[2017-05-26 03:29] LABS: ALLENS TEST Pos; BE (BASE EXCESS) -0.7 MEQ/L (0 +/- 2.5); CARBOXYHEMOGLOBIN 0.6 % (0-3); HCO3 (ACTUAL BICARBONATE) 24.7 MEQ/L (23-27); INSTRUMENT SERIAL # 35151; METHEMOGLOBIN 0.7 % (0-3); MODE CMV; O2 CONTENT 10.9 VOL% (18-24); OPERATOR ID 17370; PCO2 (CO2 TENSION) 45 MMHG (35-45); PO2 (O2 TENSION) 99 MMHG (79-93); SAMPLE Arterial; TIDAL VOLUME 430 ML; pH 7.36 (7.37-7.43)
[2017-05-26 05:12] LABS: BASOPHILS 0.2 %; BASOPHILS ABSOLUTE 0.02 10/3/uL (0.0-0.16); EOSINOPHILS 1.4 %; EOSINOPHILS ABSOLUTE 0.12 10/3/uL (0.0-0.53); HEMATOCRIT 22.6 % (36.0-48.0); HEMOGLOBIN 7.4 g/dL (12.0-16.0); IMMATURE GRANULOCYTES 0.5 %; IMMATURE GRANULOCYTES ABSOLUTE 0.04 10/3/uL (0.0-0.11); LYMPHOCYTES 15.8 %; LYMPHOCYTES ABSOLUTE 1.34 10/3/uL (0.67-4.30); MEAN CORPUS HGB CONC 32.7 g/dL (32.0-36.0); MEAN CORPUSCULAR HEMOGLOB 31.1 pg (26.0-34.0); MEAN PLATELET VOLUME 10.5 fL (9.2-13.0); MONOCYTES 6.4 %; MONOCYTES ABSOLUTE 0.54 10/3/uL (0.21-1.20); NEUTROPHILS 75.7 %; RBC DISTRIBUTION WIDTH 14.9 % (12.0-16.0); RED CELL COUNT 2.38 10/6/uL (4.0-5.6); WHITE BLOOD CELLS 8.5 10/3/uL (4.5-10.5)
[2017-05-26 05:14] LABS: MANUAL DIFF NO %; PLATELET COUNT 250 10/3/uL (150-400)
[2017-05-26 05:29] LABS: ALBUMIN 2.8 G/DL (3.5-5.0); ALKALINE PHOSPHATASE 65 U/L (45-117); BUN (BLOOD UREA NITROGEN) 52 MG/DL (6-23); CALCIUM, SERUM 8.5 MG/DL (8.5-10.4); CHLORIDE, SERUM 100 MMOL/L (96-112); CO2 (CARBON DIOXIDE) 27 MMOL/L (24-34); CREATININE 1.97 MG/DL (0.55-1.02); GFR AFRICAN AMERICAN 29 ML/MIN (>=60); GFR NON AFRICAN AMERICAN 25 ML/MIN (>=60); GLUCOSE, SERUM 131 MG/DL (60-99); PHOSPHORUS, SERUM 3.1 MG/DL (2.5-4.5); POTASSIUM, SERUM 3.9 MMOL/L (3.5-5.3); SGOT(AST) 27 U/L (5-40); SGPT(ALT) 12 U/L (5-65); SODIUM, SERUM 135 MMOL/L (135-148); TOTAL PROTEIN 6.7 G/DL (6.0-8.5)
[2017-05-26 05:30] LABS: DIRECT BILIRUBIN 0.6 MG/DL (0.0-0.4); INDIRECT BILIRUBIN(NOT ORDER) 0.5 MG/DL (0.1-0.9); TOTAL BILIRUBIN 1.1 MG/DL (0-1.2)
[2017-05-26 10:29] LABS: BE (BASE EXCESS) 2.2 MEQ/L (0 +/- 2.5); INSTRUMENT SERIAL # 35151; PCO2 (CO2 TENSION) 46 MMHG (35-45); PO2 (O2 TENSION) 132 MMHG (79-93); pH 7.39 (7.37-7.43)
[2017-05-26 10:30] LABS: CARBOXYHEMOGLOBIN 0.4 % (0-3); DEVICE VM; HCO3 (ACTUAL BICARBONATE) 27.5 MEQ/L (23-27); HEMOBLOGIN CONTENT 9.2 G/DL (12-16); METHEMOGLOBIN 0.8 % (0-3); O2 CONTENT 12.8 VOL% (18-24); SAMPLE Arterial
[2017-05-27 05:17] LABS: BASOPHILS 0.8 %; BASOPHILS ABSOLUTE 0.07 10/3/uL (0.0-0.16); EOSINOPHILS 1.7 %; EOSINOPHILS ABSOLUTE 0.15 10/3/uL (0.0-0.53); HEMATOCRIT 24.7 % (36.0-48.0); IMMATURE GRANULOCYTES 0.6 %; IMMATURE GRANULOCYTES ABSOLUTE 0.05 10/3/uL (0.0-0.11); LYMPHOCYTES 16.9 %; LYMPHOCYTES ABSOLUTE 1.51 10/3/uL (0.67-4.30); MANUAL DIFF NO %; MEAN CORPUS HGB CONC 32.4 g/dL (32.0-36.0); MEAN CORPUSCULAR HEMOGLOB 30.4 pg (26.0-34.0); MEAN CORPUSCULAR VOLUME 93.9 fL (80-100); MEAN PLATELET VOLUME 10.5 fL (9.2-13.0); MONOCYTES 7.7 %; MONOCYTES ABSOLUTE 0.69 10/3/uL (0.21-1.20); NEUTROPHILS 72.3 %; NEUTROPHILS ABSOLUTE 6.45 10/3/uL (2.02-8.40); PLATELET COUNT 328 10/3/uL (150-400); RBC DISTRIBUTION WIDTH 14.7 % (12.0-16.0); RED CELL COUNT 2.63 10/6/uL (4.0-5.6); WHITE BLOOD CELLS 8.9 10/3/uL (4.5-10.5)
[2017-05-27 05:23] LABS: ALBUMIN 2.8 G/DL (3.5-5.0); BUN (BLOOD UREA NITROGEN) 50 MG/DL (6-23); CALCIUM, SERUM 9.1 MG/DL (8.5-10.4); CHLORIDE, SERUM 101 MMOL/L (96-112); CO2 (CARBON DIOXIDE) 28 MMOL/L (24-34); CREATININE 1.76 MG/DL (0.55-1.02); GFR AFRICAN AMERICAN 34 ML/MIN (>=60); GFR NON AFRICAN AMERICAN 29 ML/MIN (>=60); GLUCOSE, SERUM 111 MG/DL (60-99); PHOSPHORUS, SERUM 2.5 MG/DL (2.5-4.5); POTASSIUM, SERUM 3.7 MMOL/L (3.5-5.3); SODIUM, SERUM 138 MMOL/L (135-148)
[2017-05-27 11:32] LABS: PROCALCITONIN 1.38 ng/mL (<0.5)
[2017-05-28 04:50] LABS: BASOPHILS 1.2 %; BASOPHILS ABSOLUTE 0.11 10/3/uL (0.0-0.16); EOSINOPHILS 1.1 %; HEMATOCRIT 27.3 % (36.0-48.0); HEMOGLOBIN 8.9 g/dL (12.0-16.0); IMMATURE GRANULOCYTES 0.8 %; IMMATURE GRANULOCYTES ABSOLUTE 0.07 10/3/uL (0.0-0.11); LYMPHOCYTES 18.8 %; LYMPHOCYTES ABSOLUTE 1.68 10/3/uL (0.67-4.30); MANUAL DIFF NO %; MEAN CORPUS HGB CONC 32.6 g/dL (32.0-36.0); MEAN CORPUSCULAR VOLUME 95.1 fL (80-100); MEAN PLATELET VOLUME 10.3 fL (9.2-13.0); MONOCYTES 10.2 %; MONOCYTES ABSOLUTE 0.91 10/3/uL (0.21-1.20); NEUTROPHILS 67.9 %; NEUTROPHILS ABSOLUTE 6.07 10/3/uL (2.02-8.40); PLATELET COUNT 376 10/3/uL (150-400); RBC DISTRIBUTION WIDTH 14.6 % (12.0-16.0); RED CELL COUNT 2.87 10/6/uL (4.0-5.6); WHITE BLOOD CELLS 8.9 10/3/uL (4.5-10.5)
[2017-05-28 05:04] LABS: CALCIUM, SERUM 9.2 MG/DL (8.5-10.4); CHLORIDE, SERUM 100 MMOL/L (96-112); CO2 (CARBON DIOXIDE) 30 MMOL/L (24-34); CREATININE 1.67 MG/DL (0.55-1.02); GFR AFRICAN AMERICAN 36 ML/MIN (>=60); GFR NON AFRICAN AMERICAN 31 ML/MIN (>=60); GLUCOSE, SERUM 93 MG/DL (60-99); PHOSPHORUS, SERUM 2.5 MG/DL (2.5-4.5); POTASSIUM, SERUM 3.5 MMOL/L (3.5-5.3); SODIUM, SERUM 141 MMOL/L (135-148)
[2017-05-28 05:20] LABS: BUN (BLOOD UREA NITROGEN) 45 MG/DL (6-23)
[2017-05-28 12:34] LABS: ASCORBIC ACID (UR NOT ORDER) NEG (NEG); BILIRUBIN, URINE NEGATIVE (NEG); KETONE, URINE NEGATIVE (NEG); LEUKOCYTE ESTERASE(NOT OR NEG (NEG); WBC (NOT ORDERED) (RFLEX) 10 (0-5)
[2017-05-29 04:13] LABS: BUN (BLOOD UREA NITROGEN) 42 MG/DL (6-23); CALCIUM, SERUM 9.1 MG/DL (8.5-10.4); CHLORIDE, SERUM 100 MMOL/L (96-112); CO2 (CARBON DIOXIDE) 32 MMOL/L (24-34); CREATININE 1.59 MG/DL (0.55-1.02); GFR AFRICAN AMERICAN 38 ML/MIN (>=60); GFR NON AFRICAN AMERICAN 33 ML/MIN (>=60); GLUCOSE, SERUM 103 MG/DL (60-99); PHOSPHORUS, SERUM 2.2 MG/DL (2.5-4.5); POTASSIUM, SERUM 3.6 MMOL/L (3.5-5.3); SODIUM, SERUM 140 MMOL/L (135-148)
[2017-05-29 11:24] LABS: INTERNATIONAL NORMAL RATI 1.1 UNITS (-)
[2017-05-30 08:16] LABS: BASOPHILS 1.7 %; BASOPHILS ABSOLUTE 0.15 10/3/uL (0.0-0.16); EOSINOPHILS 0.8 %; EOSINOPHILS ABSOLUTE 0.07 10/3/uL (0.0-0.53); HEMATOCRIT 25.3 % (36.0-48.0); HEMOGLOBIN 8.1 g/dL (12.0-16.0); IMMATURE GRANULOCYTES 1.5 %; IMMATURE GRANULOCYTES ABSOLUTE 0.13 10/3/uL (0.0-0.11); LYMPHOCYTES 22.7 %; LYMPHOCYTES ABSOLUTE 2.01 10/3/uL (0.67-4.30); MANUAL DIFF NO %; MEAN CORPUSCULAR HEMOGLOB 30.7 pg (26.0-34.0); MEAN CORPUSCULAR VOLUME 95.8 fL (80-100); MEAN PLATELET VOLUME 9.9 fL (9.2-13.0); MONOCYTES 14.3 %; MONOCYTES ABSOLUTE 1.27 10/3/uL (0.21-1.20); NEUTROPHILS ABSOLUTE 5.24 10/3/uL (2.02-8.40); PLATELET COUNT 337 10/3/uL (150-400); RBC DISTRIBUTION WIDTH 15.2 % (12.0-16.0); RED CELL COUNT 2.64 10/6/uL (4.0-5.6); WHITE BLOOD CELLS 8.9 10/3/uL (4.5-10.5)
[2017-05-30 08:26] LABS: INTERNATIONAL NORMAL RATI 1.2 UNITS (-); PROTIME (NOT ORD) 14.6 SEC (12.0-14.5)
[2017-05-30 08:31] LABS: ALBUMIN 3.1 G/DL (3.5-5.0); BUN (BLOOD UREA NITROGEN) 35 MG/DL (6-23); CALCIUM, SERUM 8.7 MG/DL (8.5-10.4); CHLORIDE, SERUM 101 MMOL/L (96-112); CO2 (CARBON DIOXIDE) 30 MMOL/L (24-34); CREATININE 1.46 MG/DL (0.55-1.02); GFR AFRICAN AMERICAN 42 ML/MIN (>=60); GFR NON AFRICAN AMERICAN 36 ML/MIN (>=60); GLUCOSE, SERUM 102 MG/DL (60-99); PHOSPHORUS, SERUM 3.1 MG/DL (2.5-4.5); POTASSIUM, SERUM 3.8 MMOL/L (3.5-5.3); SODIUM, SERUM 140 MMOL/L (135-148)
[2017-05-31 04:33] LABS: INTERNATIONAL NORMAL RATI 1.2 UNITS (-); PROTIME (NOT ORD) 15.3 SEC (12.0-14.5)
[2017-05-31 04:45] LABS: A/G RATIO 0.8 (0.7-1.9); ALBUMIN 3.2 G/DL (3.5-5.0); ALKALINE PHOSPHATASE 65 U/L (45-117); CALCIUM, SERUM 9.1 MG/DL (8.5-10.4); CHLORIDE, SERUM 98 MMOL/L (96-112); CO2 (CARBON DIOXIDE) 33 MMOL/L (24-34); CREATININE 1.51 MG/DL (0.55-1.02); GFR AFRICAN AMERICAN 40 ML/MIN (>=60); GFR NON AFRICAN AMERICAN 35 ML/MIN (>=60); GLOBULIN 3.9 G/DL (2.5-4.1); GLUCOSE, SERUM 98 MG/DL (60-99); PHOSPHORUS, SERUM 3.1 MG/DL (2.5-4.5); POTASSIUM, SERUM 3.9 MMOL/L (3.5-5.3); SGOT(AST) 55 U/L (5-40); SGPT(ALT) 27 U/L (5-65); SODIUM, SERUM 139 MMOL/L (135-148); TOTAL BILIRUBIN 0.8 MG/DL (0-1.2); TOTAL PROTEIN 7.1 G/DL (6.0-8.5)
[2017-05-31 04:46] LABS: BUN (BLOOD UREA NITROGEN) 28 MG/DL (6-23)
[2017-06-01 06:08] LABS: INTERNATIONAL NORMAL RATI 1.5 UNITS (-)
[2017-06-01 06:09] LABS: PROTIME (NOT ORD) 18.3 SEC (12.0-14.5)
[2017-06-01 06:16] LABS: CALCIUM, SERUM 8.7 MG/DL (8.5-10.4); CHLORIDE, SERUM 99 MMOL/L (96-112); CO2 (CARBON DIOXIDE) 33 MMOL/L (24-34); CREATININE 1.72 MG/DL (0.55-1.02); GFR AFRICAN AMERICAN 35 ML/MIN (>=60); GFR NON AFRICAN AMERICAN 30 ML/MIN (>=60); GLUCOSE, SERUM 101 MG/DL (60-99); POTASSIUM, SERUM 4.1 MMOL/L (3.5-5.3); SODIUM, SERUM 141 MMOL/L (135-148)
[2017-06-01 06:17] LABS: BUN (BLOOD UREA NITROGEN) 24 MG/DL (6-23)
[2017-06-02 06:28] LABS: BASOPHILS 1.2 %; BASOPHILS ABSOLUTE 0.08 10/3/uL (0.0-0.16); EOSINOPHILS 2.6 %; EOSINOPHILS ABSOLUTE 0.18 10/3/uL (0.0-0.53); HEMATOCRIT 25.7 % (36.0-48.0); HEMOGLOBIN 8.1 g/dL (12.0-16.0); IMMATURE GRANULOCYTES 1.9 %; IMMATURE GRANULOCYTES ABSOLUTE 0.13 10/3/uL (0.0-0.11); LYMPHOCYTES 26.9 %; LYMPHOCYTES ABSOLUTE 1.84 10/3/uL (0.67-4.30); MANUAL DIFF NO %; MEAN CORPUS HGB CONC 31.5 g/dL (32.0-36.0); MEAN CORPUSCULAR HEMOGLOB 30.7 pg (26.0-34.0); MEAN CORPUSCULAR VOLUME 97.3 fL (80-100); MEAN PLATELET VOLUME 10.8 fL (9.2-13.0); MONOCYTES 10.9 %; MONOCYTES ABSOLUTE 0.75 10/3/uL (0.21-1.20); NEUTROPHILS 56.5 %; NEUTROPHILS ABSOLUTE 3.87 10/3/uL (2.02-8.40); PLATELET COUNT 249 10/3/uL (150-400); RBC DISTRIBUTION WIDTH 15.6 % (12.0-16.0); RED CELL COUNT 2.64 10/6/uL (4.0-5.6); WHITE BLOOD CELLS 6.9 10/3/uL (4.5-10.5)
[2017-06-02 06:30] LABS: INTERNATIONAL NORMAL RATI 2.1 UNITS (-)
[2017-06-02 06:33] LABS: PROTIME (NOT ORD) 23.6 SEC (12.0-14.5)
[2017-06-02 06:50] LABS: BUN (BLOOD UREA NITROGEN) 23 MG/DL (6-23); CALCIUM, SERUM 9.1 MG/DL (8.5-10.4); CHLORIDE, SERUM 94 MMOL/L (96-112); CO2 (CARBON DIOXIDE) 33 MMOL/L (24-34); CREATININE 1.71 MG/DL (0.55-1.02); GFR AFRICAN AMERICAN 35 ML/MIN (>=60); GFR NON AFRICAN AMERICAN 30 ML/MIN (>=60); GLUCOSE, SERUM 100 MG/DL (60-99); PHOSPHORUS, SERUM 3.5 MG/DL (2.5-4.5); POTASSIUM, SERUM 3.8 MMOL/L (3.5-5.3); SODIUM, SERUM 136 MMOL/L (135-148)
[2017-06-03 05:51] LABS: INTERNATIONAL NORMAL RATI 2.4 UNITS (-); PROTIME (NOT ORD) 25.5 SEC (12.0-14.5)
[2017-06-04 06:21] LABS: INTERNATIONAL NORMAL RATI 2.2 UNITS (-); PROTIME (NOT ORD) 24.6 SEC (12.0-14.5)
[2017-06-05 06:44] LABS: INTERNATIONAL NORMAL RATI 2.4 UNITS (-)
[2017-06-06 06:26] LABS: INTERNATIONAL NORMAL RATI 2.6 UNITS (-); PROTIME (NOT ORD) 27.3 SEC (12.0-14.5)
[2017-06-06 06:34] LABS: BUN (BLOOD UREA NITROGEN) 24 MG/DL (6-23); CALCIUM, SERUM 8.6 MG/DL (8.5-10.4); CHLORIDE, SERUM 100 MMOL/L (96-112); CO2 (CARBON DIOXIDE) 29 MMOL/L (24-34); CREATININE 2.17 MG/DL (0.55-1.02); GFR AFRICAN AMERICAN 26 ML/MIN (>=60); GFR NON AFRICAN AMERICAN 23 ML/MIN (>=60); POTASSIUM, SERUM 4.4 MMOL/L (3.5-5.3); SODIUM, SERUM 139 MMOL/L (135-148)
[2017-06-06 06:35] LABS: GLUCOSE, SERUM 125 MG/DL (60-99)
[2017-06-07 05:13] LABS: INTERNATIONAL NORMAL RATI 2.7 UNITS (-); PROTIME (NOT ORD) 28.5 SEC (12.0-14.5)
[2017-06-07 05:20] LABS: BUN (BLOOD UREA NITROGEN) 23 MG/DL (6-23); CHLORIDE, SERUM 102 MMOL/L (96-112); CO2 (CARBON DIOXIDE) 29 MMOL/L (24-34); CREATININE 2.12 MG/DL (0.55-1.02); GFR AFRICAN AMERICAN 27 ML/MIN (>=60); GFR NON AFRICAN AMERICAN 23 ML/MIN (>=60); GLUCOSE, SERUM 110 MG/DL (60-99); POTASSIUM, SERUM 4.2 MMOL/L (3.5-5.3); SODIUM, SERUM 137 MMOL/L (135-148)
[2017-06-08 05:36] LABS: INTERNATIONAL NORMAL RATI 2.9 UNITS (-); PROTIME (NOT ORD) 29.9 SEC (12.0-14.5)
[2017-06-09 05:24] LABS: INTERNATIONAL NORMAL RATI 3.1 UNITS (-); PROTIME (NOT ORD) 31.6 SEC (12.0-14.5)
== END 2017-06-09 19:08 | DRG 870 ==
LOC: ENRESERVDT → ENRESERV → ENRESERVTM → CANRESERV → ER 14:25 → EDBEDREQ 18:23 → CCU 18:45 → 6NO 18:45 → CCU 05-29 21:46 → 6NO 05-31 18:27
PROVIDERS: Emergency Medicine; Hospitalist; Internal Medicine; Internal Medicine Critical Care Medicine; Internal Medicine Nephrology; Internal Medicine Pulmonary Disease; Nurse Practitioner Family
PROC: 5A09457 Assistance with Respiratory Ventilation, 24-96 Consecutive Hours, Continuous Positive Airway Pressure (ICD-10-PCS; principal; 2017-05-12)
PROC: 5A1945Z Respiratory Ventilation, 24-96 Consecutive Hours (ICD-10-PCS; 2017-05-12)
PROC: 05HM33Z Insertion of Infusion Device into Right Internal Jugular Vein, Percutaneous Approach (ICD-10-PCS; 2017-05-12)
PROC: B5131ZA Fluoroscopy of Right Jugular Veins using Low Osmolar Contrast, Guidance (ICD-10-PCS; 2017-05-12)
PROC: 5A1955Z Respiratory Ventilation, Greater than 96 Consecutive Hours (ICD-10-PCS; 2017-05-13)
PROC: 0BH17EZ Insertion of Endotracheal Airway into Trachea, Via Natural or Artificial Opening (ICD-10-PCS; 2017-05-13)
PROC: 05HM33Z Insertion of Infusion Device into Right Internal Jugular Vein, Percutaneous Approach (ICD-10-PCS; 2017-05-13)
PROC: B543ZZA Ultrasonography of Right Jugular Veins, Guidance (ICD-10-PCS; 2017-05-13)
PROC: 5A1D60Z (ICD-10-PCS; 2017-05-13)
PROC: 0BH17EZ Insertion of Endotracheal Airway into Trachea, Via Natural or Artificial Opening (ICD-10-PCS; 2017-05-18)
PROC: 02HV33Z Insertion of Infusion Device into Superior Vena Cava, Percutaneous Approach (ICD-10-PCS; 2017-05-26)
DX: A41.51 Sepsis due to Escherichia coli [E. coli] (principal); N17.0 Acute kidney failure with tubular necrosis; R65.21 Severe sepsis with septic shock; G93.41 Metabolic encephalopathy; J96.01 Acute respiratory failure with hypoxia; J96.02 Acute respiratory failure with hypercapnia; K56.60 Unspecified intestinal obstruction; D68.32 Hemorrhagic disorder due to extrinsic circulating anticoagulants; N18.3 Chronic kidney disease, stage 3 (moderate); E87.2 Acidosis; N39.0 Urinary tract infection, site not specified; K56.7 Ileus, unspecified; Z68.42 Body mass index [BMI] 45.0-49.9, adult; D69.6 Thrombocytopenia, unspecified; I25.10 Atherosclerotic heart disease of native coronary artery without angina pectoris; G47.33 Obstructive sleep apnea (adult) (pediatric); Z66 Do not resuscitate; I48.2 Chronic atrial fibrillation; I12.9 Hypertensive chronic kidney disease with stage 1 through stage 4 chronic kidney disease, or unspecified chronic kidney disease; E03.9 Hypothyroidism, unspecified; E66.01 Morbid (severe) obesity due to excess calories; K21.9 Gastro-esophageal reflux disease without esophagitis; D64.9 Anemia, unspecified; I48.0 Paroxysmal atrial fibrillation; F32.9 Major depressive disorder, single episode, unspecified; R19.7 Diarrhea, unspecified; F44.89 Other dissociative and conversion disorders; Z96.642 Presence of left artificial hip joint; Z99.81 Dependence on supplemental oxygen; Z98.890 Other specified postprocedural states; Z79.01 Long term (current) use of anticoagulants; Z90.710 Acquired absence of both cervix and uterus
CPT/HCPCS: 31720; 36569; 36600; 71010; 74000; 80048; 80053; 80069; 80074; 80076; 80202; 81001; 82140; 82248; 82330; 82530; 82533; 82805; 82962; 83605; 83735; 83880; 84100; 84132; 84145; 84439; 84443; 84484; 85025; 85049; 85379; 85384; 85610; 85730; 87040; 87045; 87046; 87046-59; 87070; 87077; 87086; 87106; 87150; 87186; 87205; 87389; 87449; 87493; 87493-59; 87641; 87899; 87899-59; 93005; 93970; 94002; 94003; 94640; 94660; 94667; 94668; 94770; 96365; 96375; 97110-GO; 97110-GP; 97116-GP; 97163-GP; 97164-GP; 97165-GO; 97530-GP; 97535-GO; 99284; A9270-GY; C1751; C1894; C8929; C9113; G0257; G8978-CN-GP; G8979-CL-GP; J0282; J0360; J0456; J0610; J0690; J1170; J1205; J1630; J2185; J2248; J2405; J2543; J2710; J2765; J3010; J3370; J3430; J3475; P9047; Q9957